=== PATIENT | female | born 1940 | race Caucasian/White ===

== ENCOUNTER 2023-03-21 16:15 | Outpatient (CLI) | payer MEDICARE, SELFPAY ==
--- NOTE | ~2023-03-21 | XR_ITS ---
XR chest 2V DATE: 03/21/2023 16:32 INDICATION: Cough for one week. History of asthma. TECHNIQUE: PA and lateral views COMPARISON: None FINDINGS: There is mild discoid atelectasis and possible mild infiltrate at the right lung base, righ t lower lobe. The lungs are hyperinflated but otherwise clear of infiltrate or consolidation. No pleural effusion or pulmonary vascular congestion or pneumothorax is detected. Diffuse osteopenia. There is dextroscoliosis of the thoracic spine. IMPRESSION: Mild discoid atelectasis and possible infiltrate at right lung base Reviewed, dictated and finalized at location L. SITTER
== END 2023-03-21 16:16 | disposition home or self-care (01) ==
LOC: ANHIMG 16:19
PROVIDERS: PCP Internal Medicine; Visit Provider Family Medicine
DX: R05.9 Cough, unspecified (principal); R91.8 Other nonspecific abnormal finding of lung field
CPT/HCPCS: 71046

== ENCOUNTER 2023-03-22 04:53 | Emergency (ER) | payer MEDICARE, SELFPAY ==
[2023-03-22] VITALS (12 sets, daily range): BP systolic 123–153; BP diastolic 62–101; PULSE 65–80; RESP 14–24; TEMP 36.4; O2SAT 84–100
--- NOTE | 2023-03-22 05:01 | ECG_ITS ---
Measurements Intervals [place] Rate: 72 P: 26 [place]: 110 QRS: 24 QRSD: 90 T: 58 QT: 348 QTc: 383 Interpretive Statements SINUS RHYTHM WITH SHORT [place] INTERVAL BORDERLINE ECG NO PREVIOUS ECG AVAILABLE FOR COMPARISON Electronically Signed On 03-22-2023 8:00:47 RETAIL EXPERIENCE SPECIALIST by Gal De La Fuente D.O.
--- NOTE | 2023-03-22 05:03 | PC.NURSE ---
Patient stated in triage that pain feels like indigestion and burning. Patient also stated that pain was in her chest going to her shoulders.
[2023-03-22 07:00] LABS: Basophils Absolute Auto 0.1 K/mm3 (0.0-0.1); Basophils Percent Auto 0.5 % (0.2-1.2); Eosinophils Absolute Auto 0.2 K/mm3 (0-0.3); Eosinophils Percent Auto 1.3 % (0-4.4); Hematocrit 39.5 % (37.0-47.0); Hemoglobin 13.4 g/dL (12.0-15.0); Immature Granulocyte Absolute 0.39 K/mm3 (0.00-0.031); Immature Granulocyte Percent A 3.3 % (0-0.5); Lymphocytes Percent Auto 17.6 % (18.3-44.2); Mean Corpuscular HGB Conc 33.9 g/dl (32-36); Mean Corpuscular Hemoglobin 29.9 pg (26-34); Mean Corpuscular Volume 88.2 fl (80-100); Mean Platelet Volume 9.7 fl (7.4-10.4); Monocytes Absolute Auto 0.7 K/mm3 (0.1-0.6); Monocytes Percent Auto 5.9 % (2.6-8.5); Neutrophils Absolute Auto 8.5 K/mm3 (1.3-6.7); Neutrophils Percent Auto 71.4 % (45.5-73.1); Platelet Count Result 370 k/mm3 (150-375); Red Blood Count 4.48 M/mm3 (4.2-5.4); Red Cell Distribution Width 13.9 % (11.5-14.5); White Blood Count 11.9 K/mm3 (4.5-10.0)
[2023-03-22 07:18] LABS: Carbon Dioxide 29 mmol/L (22-30); Chloride 105 mmol/L (98-107); Sodium 137 mmol/L (137-145)
[2023-03-22 07:19] LABS: Alanine Aminotransferase 20 U/L (6-35); Albumin Level 3.2 g/dL (3.5-5.1); Alkaline Phosphatase 70 U/L (38-126); Anion Gap 3 mmol/L (8-16); Aspartate Amino Transferase 17 U/L (14-36); Bilirubin,Total 0.4 mg/dL (0.2-1.3); Blood Urea Nitrogen 23 mg/dL (7-17); Calcium 9.5 mg/dL (8.4-10.2); Estimated Glomerular Filt Rate 53; Glucose 93 mg/dL (65-110); Lipase 120 U/L (23-300)
[2023-03-22 07:21] LABS: Appearance Urine Clear (Clear); Bacteria Urine None Seen /hpf; Bilirubin Urine Negative (Negative); Blood Urine Negative (Negative); Color Urine Yellow (Yellow); Glucose Urine UA Negative (Negative); Ketones Urine Negative (Negative); Leukocyte Esterase Ur Trace LEU/UL (Negative); Nitrate Urine Negative (Negative); Non Pathogenic Casts 0-2; Protein Urine Negative (Negative); RBC Urine 0-2 /hpf (0-2); Specific Grav Ur 1.006 (1.001-1.035); Squamous Epithelial Cell Urine Few /hpf (Few); Urobilinogen Urine 0.2 mg/dL (<2.0); WBC Urine 0-5 /hpf
[2023-03-22 07:32] LABS: Add Urine Microscopic? YES
[2023-03-22 08:46] LABS: Potassium 4.8 mmol/L (3.4-5.0)
--- NOTE | 2023-03-22 08:46 | ED.ABDPAIN ---
HPI - Abdominal Pain General Chief Complaint: Abdominal Pain Stated Complaint: Just woke up with abdominal pain, chest pain, Time Seen by Provider: 03/22/23 07:05 History of Present Illness HPI narrative: Patient is an 82-year-old female who presents ER with abdominal pain. Patient woke up at 2:30 a.m. in the morning with what she felt was heartburn. She reports she is having persistent belching discomfort. No diaphoresis/nausea/ vomiting/dyspnea. She had similar symptoms week and half ago. Symptoms resolved after taking Tums and Pepto-Bismol, but it lasted 2 hours. No exertional chest discomfort. No history of heart disease. Related Data Allergies Allergy/AdvReac Type Severity Reaction Status Date / Time morphine Allergy Unknown SLOW TO Verified 08/31/17 09:00 WAKE UP Review of Systems Review of Systems: All systems reviewed & are unremarkable except as noted in HPI and below Constitutional: Constitutional: Reports no additional constitutional complaints ENT: Reports system reviewed and no additional complaints, except as documented Cardiovascular: Cardiovascular: Reports no additional cardiovascular complaints Respiratory: Respiratory: Reports no additional respiratory complaints Gastrointestinal: Gastrointestinal: Reports abdominal pain, Reports heartburn, Denies diarrhea, Denies nausea and Denies vomiting Comments: +belching PMFSH Past Medical History Medical History (Updated 03/22/23 @ 11:24 by Dago Lloyd MD) Anxiety Asthma Depression Diverticulitis Hypertension Kidney stones Legally blind Surgical History Surgical History (Updated 03/22/23 @ 08:48 by Dago Lloyd MD) History of eye surgery History of hysterectomy Exam Narrative: GENERAL: Well-appearing, well-nourished, and in no acute distress. HEAD: Normocephalic, atraumatic. ENT: Mucous membranes moist. CHEST: Clear to auscultation. No respiratory distress. HEART: Regular rate and rhythm. Normal peripheral pulses. ABDOMEN: Soft, nontender, nondistended. EXTREMITIES: Normal range of motion. No edema. SKIN: Warm, dry, no rash. NEURO: Alert and oriented x3. PSYCH: Normal mood and affect. Course Course Emergency Course: Patient resting comfortably. Informed results. Troponin negative x2. EKG was sinus rhythm and no ST elevation or depression. Patient had no chest pain and excessive gas is felt appropriate for discharge home. Discussed return precautions. Additionally reviewed outpatient x-ray from yesterday and will start azithromycin for infiltrate. Vital Signs Vital signs: Vital Signs Temperature 97.5 F L 03/22/23 04:56 Pulse Rate 80 03/22/23 04:56 Respiratory Rate 20 03/22/23 04:56 Blood Pressure 153/88 H 03/22/23 04:56 Pulse Oximetry 100 03/22/23 04:56 Oxygen Delivery Room Air 03/22/23 04:56 Temperature 97.5 F L 03/22/23 04:56 Pulse Rate 65 03/22/23 10:30 Respiratory Rate 18 03/22/23 10:30 Blood Pressure 129/62 03/22/23 10:30 Pulse Oximetry 100 03/22/23 10:30 Oxygen Delivery Room Air 03/22/23 04:56 MDM - Abdominal Pain Lab Data 03/22/23 06:43 03/22/23 06:43 Labs: Lab Results 03/22/23 03/22/23 03/22/23 Range/Units 06:43 07:05 09:54 WBC 11.9 H (4.5-10.0) K/mm3 RBC 4.48 (4.2-5.4) M/mm3 Hgb 13.4 (12.0-15.0) g/dL Hct 39.5 (37.0-47.0) % MCV 88.2 (80-100) fl MCH 29.9 (26-34) pg MCHC 33.9 (32-36) g/dl RDW 13.9 (11.5-14.5) % Plt Count 370 (150-375) k/mm3 MPV 9.7 (7.4-10.4) fl Immature Gran % (Auto) 3.3 H (0-0.5) % Neut % (Auto) 71.4 (45.5-73.1) % Lymph % (Auto) 17.6 L (18.3-44.2) % [place] % (Auto) 5.9 (2.6-8.5) % Eos % (Auto) 1.3 (0-4.4) % Baso % (Auto) 0.5 (0.2-1.2) % Lymph # (Auto) 2.10 (0.9-3.2) K/mm3 [place] # (Auto) 0.7 H (0.1-0.6) K/mm3 Eos # (Auto) 0.2 (0-0.3) K/mm3 Baso # (Auto) 0.1 (0.0-0.1) K/mm3 Ab
[2023-03-22 09:00] LABS: Troponin I < 0.012 ng/mL (0.000-0.034)
--- NOTE | 2023-03-22 10:09 | ECG_ITS ---
Measurements Intervals [place] Rate: 66 P: 29 [place]: 103 QRS: 11 QRSD: 90 T: 48 QT: 355 QTc: 373 Interpretive Statements SINUS RHYTHM WITH SHORT [place] INTERVAL DELAYED PRECORDIAL R/S TRANSITION BORDERLINE ECG COMPARED TO ECG 03/22/2023 05:12:27 NO SIGNIFICANT CHANGES Electronically Signed On 03-22-2023 10:20:05 ARTIFICIAL FLOWERS SUPERVISOR by Gal De La Fuente D.O.
[2023-03-22 10:36] LABS: Troponin I < 0.012 ng/mL (0.000-0.034)
== END 2023-03-22 11:50 | disposition home or self-care (01) ==
PROVIDERS: Student in an Organized Health Care Education/Training Program; Emergency Provider Emergency Medicine
DX: R10.13 Epigastric pain (principal); K21.9 Gastro-esophageal reflux disease without esophagitis; I10 Essential (primary) hypertension; J45.909 Unspecified asthma, uncomplicated; F41.9 Anxiety disorder, unspecified; F32.A Depression, unspecified
CPT/HCPCS: 36415; 80053; 81001; 83690; 84484; 85025; 93005; 99284

== ENCOUNTER 2023-08-10 07:08 | Outpatient (CLI) | payer MEDICARE, SELFPAY ==
--- NOTE | ~2023-08-10 | US_ITS ---
US right upper quadrant INDICATION: Right upper quadrant pain PROCEDURE: Realtime right upper abdominal ultrasound. COMPARISON: No prior studies for comparison. FINDINGS: The pancreas is normal without focal mass or pancreatic ductal dilation. Liver echotexture is normal without focal mass or intrahepatic biliary dilatation. There is normal directional flow i n the portal vein. The gallbladder is normal without stones, gallbladder wall thickening or pericholecystic fluid. Comm on bile duct measures 4 mm. No sonographic Rico's sign. IMPRESSION: 1: Normal limited abdominal ultrasound. Reviewed, dictated and finalized at location A.
== END 2023-08-10 07:09 | disposition home or self-care (01) ==
LOC: ANHIMG 07:09
PROVIDERS: Visit Provider Family Medicine
DX: R10.11 Right upper quadrant pain (principal)
CPT/HCPCS: 76705

== ENCOUNTER 2023-09-22 10:28 | Inpatient (IN) | payer MEDICARE, SELFPAY ==
[2023-09-22] VITALS (8 sets, daily range): BP systolic 93–151; BP diastolic 63–118; PULSE 62–91; RESP 14–20; TEMP 36.6–36.8; O2SAT 97–100; BMI 22.1
--- NOTE | ~2023-09-22 | XR_ITS ---
EXAMINATION: XR abdomen/kub 1V DATE: 09/24/2023 09:48 INDICATION: Constipation. TECHNIQUE: A supine view of the abdomen on 2 radiographs was obtained. COMPARISON: CT abdomen and pelvis 09/22/2023 FINDINGS: There are no dilated loops of bowel. Stool distends the rectum. There is a small volume of stool in the descending and sigmoid colon. IMPRESSION: 1. Stool distends the rectum. Reviewed, dictated and finalized at location E.
--- NOTE | ~2023-09-22 | CT_ITS ---
EXAMINATION: CT abdomen pelvis w con DATE: 09/22/2023 11:37 INDICATION: Abdominal pain and bloating TECHNIQUE: Computed tomography (CT) of the abdomen and pelvis was performed with 100 mL Omnipaque-350 intravenous contrast. Automated exposure control and iterative reconstruction technique were employe d. The dose-length product was 234.49 mGy-cm. COMPARISON: None FINDINGS: Lung bases are clear. Heart size is normal. Atherosclerotic coronary artery calcific lesion. No peric ardial or pleural effusion. Moderate-sized sliding-type hiatal hernia. Liver, gallbladder, spleen, pa ncreas, bilateral adrenal glands and kidneys are normal. There is moderate colonic diverticulosis mos t prominent along the distal descending and proximal sigmoid colon. There is focal mild wall thickeni ng at the junction of the descending and sigmoid colon consistent with diverticulitis. Large ball of stool at the rectum measuring 6.8 cm maximal diameter with mild wall thickening and inflammatory stra nding in the surrounding fat consistent with stercoral colitis. There is fluid throughout the more pr oximal colon consistent with diarrhea. No bowel obstruction. The appendix is not visualized. No peric ecal inflammatory change to suggest acute appendicitis. Small fat-containing umbilical hernia. Bladde r is normal. The uterus is not identified and has likely been surgically resected. No abscess or free intraperitoneal gas or fluid. No pathologically enlarged abdominal or pelvic lymphadenopathy. Mild t o moderate thoracolumbar spondylosis. Central prosthetic 1.5 cm ill-defined sclerotic lesion at the L 2 vertebral body. IMPRESSION: 1. Moderate diverticulosis with stranding at the junction of the descending and sigmoid colon suspici ous for diverticulitis. 2. Diffuse mild wall thickening and some inflammatory stranding at the rectum which is distended arou nd a 6.8 cm ball of stool suggestive of fecal impaction with stercoral colitis. 3. Indeterminate 1.5 cm ill-defined sclerotic lesion at the L2 vertebral body which raises some yanci rn for metastatic disease. Consider bone scan for further evaluation. 4. Moderate-sized sliding-type hiatal hernia. Reviewed, dictated and finalized at location B. IMPRESSION: 1. Moderate diverticulosis with stranding at the junction of the descending and sigmoid colon suspicious for diverticulitis. 2. Diffuse mild wall thickening and some inflammatory stranding at the rectum w hich is distended around a 6.8 cm ball of stool suggestive of fecal impaction w ith stercoral colitis. 3. Indeterminate 1.5 cm ill-defined sclerotic lesion at the L2 vertebral body w hich raises some concern for metastatic disease. Consider bone scan for further evaluation. 4. Moderate-sized sliding-type hiatal hernia.
--- NOTE | 2023-09-22 10:38 | ED.GENADULT ---
HPI - General Adult General Chief complaint: Unspecified Stated complaint: issues with bowels Time Seen by Provider: 09/22/23 10:38 Source: patient Mode of arrival: ambulatory Limitations: no limitations History of Present Illness HPI narrative: Letitia is an 83-year-old female patient presenting to the clinic today with complaints of abdominal pain/ Bloating x2 days. She reports she has not had a bowel movement since Monday. Has been taking maxi trait without relief. Last dose was this morning. States she feels swollen in the rectum area and is unable to pass stool. Feels as though she needs to pass stool but can not due to the discomfort and/pain. History of obstruction/impaction two years ago. Denies any abdominal surgeries. Does have associated nausea. States she is passing gas Related Data Allergies Allergy/AdvReac Type Severity Reaction Status Date / Time morphine Allergy Unknown SLOW TO Verified 09/22/23 10:44 WAKE UP Review of Systems Review of Systems: Pertinent positives per HPI. Patient denies any fever, chills, rash, headache, visual changes, dizziness, cough, runny nose, sore throat, shortness of breath, chest pain, palpitations,vomiting, diarrhea, or any urinary issues. [facility] Past Medical History Medical History Anxiety Asthma Depression Diverticulitis Hypertension Kidney stones Legally blind Surgical History Surgical History History of eye surgery History of hysterectomy Comments At the time of my signature, I reviewed and agree with the nursing past medical, surgical, social, and family history. There is no relevant family history pertinent to the patient complaint. Exam Narrative: General: Well-developed, well nourished, in no apparent distress. Head: Normocephalic, atraumatic. Cardio: Regular rate and rhythm, s1 and s2 normal, no murmur appreciated. Resp: Clear to auscultation bilaterally, no rhonchi, rales, wheezing or rubs. Abdomen: Soft, pliable, bowel sounds present in all quadrants, generalized tender to palpation, no organomegly, no CVAT tenderness. Course Course Emergency Course: Portions of this record may have been created with voice recognition software. Vital Signs Vital signs: Vital Signs Temperature 36.7 C 09/22/23 10:37 Pulse Rate 91 09/22/23 10:37 Respiratory Rate 20 09/22/23 10:37 Blood Pressure 138/118 H 09/22/23 10:37 Pulse Oximetry 100 09/22/23 10:37 Oxygen Delivery Room Air 09/22/23 10:37 Temperature 36.7 C 09/22/23 10:37 Pulse Rate 84 09/22/23 11:43 Respiratory Rate 17 09/22/23 11:43 Blood Pressure 151/85 H 09/22/23 11:43 Pulse Oximetry 100 09/22/23 11:43 Oxygen Delivery Room Air 09/22/23 10:37 Vital signs reviewed Medical Decision Making MDM Narrative Medical decision making narrative: At the time of visit patient is resting comfortably on the exam table. Patient appears to be nontoxic. Labs: CBC shows a white blood cell count of 13.1, H&H of 14.841.2, platelet count is 3 her 42, patient does have a left-sided shift, chemistry shows sodium 137, potassium of 4.1, chloride 103, carbon dioxide 26, BUN of 19, creatinine 1.1, GFR is 47, glucose is 93, liver function test within normal limits, lipase is 243. Urinalysis Diagnostics: CT abdomen/pelvis. 1. Moderate diverticulosis with stranding at the junction of the descending and sigmoid colon suspicious for diverticulitis. 2. Diffuse mild wall thickening and some inflammatory stranding at the rectum which is distended around a 6.8 cm ball of stool suggestive of fecal impaction with stercoral colitis. 3. Indeterminate 1.5 cm ill-defined sclerotic lesion at the L2 vertebral body which raises some concern for metastatic disease. Consider bone scan for further evaluation. 4. Moderate-sized sliding-type hiatal hernia. Plan
[2023-09-22 11:03] LABS: Basophils Percent Auto 0.2 % (0.2-1.2); Eosinophils Absolute Auto 0.1 K/mm3 (0-0.3); Eosinophils Percent Auto 0.8 % (0-4.4); Hematocrit 41.2 % (37.0-47.0); Hemoglobin 14.8 g/dL (12.0-15.0); Immature Granulocyte Absolute 0.11 K/mm3 (0.00-0.031); Immature Granulocyte Percent A 0.8 % (0-0.5); Lymphocytes Absolute Auto 2.22 K/mm3 (0.9-3.2); Mean Corpuscular HGB Conc 35.9 g/dl (32-36); Mean Corpuscular Hemoglobin 29.8 pg (26-34); Mean Corpuscular Volume 83.1 fl (80-100); Mean Platelet Volume 9.8 fl (7.4-10.4); Monocytes Absolute Auto 0.7 K/mm3 (0.1-0.6); Monocytes Percent Auto 5.4 % (2.6-8.5); Neutrophils Absolute Auto 9.9 K/mm3 (1.3-6.7); Neutrophils Percent Auto 75.8 % (45.5-73.1); Platelet Count Result 342 k/mm3 (150-375); Red Blood Count 4.96 M/mm3 (4.2-5.4); Red Cell Distribution Width 14.8 % (11.5-14.5); White Blood Count 13.1 K/mm3 (4.5-10.0)
[2023-09-22 11:08] LABS: Alanine Aminotransferase 14 U/L (6-35); Albumin Level 4.1 g/dL (3.5-5.1); Alkaline Phosphatase 69 U/L (38-126); Anion Gap 8 mmol/L (4-12); Aspartate Amino Transferase 18 U/L (14-36); Bilirubin,Total 0.6 mg/dL (0.2-1.3); Blood Urea Nitrogen 19 mg/dL (7-17); Calcium 9.8 mg/dL (8.4-10.2); Carbon Dioxide 26 mmol/L (22-30); Chloride 103 mmol/L (98-107); Estimated CRCL calculation 25 ml/min; Estimated Glomerular Filt Rate 47; Glucose 93 mg/dL (65-110); Lipase 243 U/L (23-300); Potassium 4.1 mmol/L (3.4-5.0); Sodium 137 mmol/L (137-145)
[2023-09-22] MEDS: SODIUM CHLORIDE 0.9% IV 1,000 ML 999 ML IV CONT (11:42)
[2023-09-22] MEDS: ONDANSETRON INJ 4 MG/2 ML VIAL IV PUSH (11:42)
[2023-09-22 11:53] LABS: Appearance Urine Clear (Clear); Bilirubin Urine Negative (Negative); Blood Urine Negative (Negative); Color Urine Yellow (Yellow); Glucose Urine UA Negative (Negative); Ketones Urine Negative (Negative); Leukocyte Esterase Ur Negative LEU/UL (Negative); Nitrate Urine Negative (Negative); Protein Urine Negative (Negative); Urobilinogen Urine 0.2 mg/dL (<2.0)
[2023-09-22] MEDS: HYDROmorphone HCL INJ (*CRX) 1 MG/ML SYR 0.5 MG IV PUSH (11:56)
[2023-09-22 12:05] LABS: Add Urine Microscopic? NO
[2023-09-22] MEDS: PIPERACILLN/TAZ 3.375GM/NS50ML 3.375 GM/50 ML BAG IVPB (13:06)
[2023-09-22] MEDS: SODIUM CHLORIDE 0.9% IV 1,000 ML 125 ML IV CONT (13:40)
[2023-09-22 14:06] LABS: Lactic Acid Reflex 1.3 mmol/L (0.7-2.0)
--- NOTE | 2023-09-22 14:13 | PM.IMHP ---
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 The patient presents here from home for further evaluation of abdominal pain, nausea, and constipation. She reports last bowel movement on 09/20/2023 which was hard and small. Constipation now accompanied by abdominal pain and nausea. She describes the abdominal pain as lower, radiating into her buttocks, intermittent, no aggravating factors, and no alleviating factors. Pain so severe at home she had a difficult time ambulating. Reported symptoms were similar to her previous bowel obstruction which is why she sought care today. Prior to seeking treatment, the patient trialed half a bottle of magnesium citrate on 09/20 and Linzess 72 mcg on 09/19 without relief. Denying associated fever, chills, or body aches. Initial VS at presentation: 98.1? F, HR 91, RR 20, 138 of 118, and 100% on RA. ED workup showed: WBC 13.1, hemoglobin 14.8, creatinine 1.1 and GFR 47 (previously 1.0 and GFR 53 on 03/22/2023), lactic 1.3. UA unremarkable. CT of the abdomen/pelvis showed moderate diverticulosis with stranding suspicious for diverticulitis, diffuse mild wall thickening and inflammatory stranding at the rectum with 6.8 cm polyp stool suggestive of fecal impaction with stercoral colitis, indeterminate 1.5 cm sclerotic lesion at L2 vertebral body, and a moderate-sized sliding hiatal hernia. 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 Alcohol intake: never Substance use: never Do You Feel Safe in your Home?: Yes Lack of Transportation: No Lack of Food: Never True Current Housing: I Have Housing Concerned About Future Housing: No Difficulty Paying Gas/Electric Bills: No Difficulty Paying for Meds: No Currently Unemployed: No Education: High School Diploma/GED Difficulty w/ Childcare or Family Care: No Spiritual care concerns: No Meds Home Medications and Allergies Home Medications Medication Instructions Recorded Confirmed Type albuterol sulfate 90 mcg/actuation See Rx Instructions .Route .COMPLEX 09/22/23 09/22/23 History aerosol inhaler amlodipine 5 mg tablet 5 mg PO DAILY 09/22/23 09/22/23 History budesonide-formoterol HFA 160 See Rx Instructions .Route .COMPLEX 09/22/23 09/22/23 History mcg-4.5 mcg/actuation aerosol inhaler (Symbicort) ipratropium 0.5 mg-albuterol 3 mg See Rx Instructions .Route .COMPLEX 09/22/23 09/22/23 History (2.5 mg base)/3 mL nebulization soln levothyroxine 75 mcg tablet 75 mcg PO DAILY 09/22/23 09/22/23 History losartan 100 mg tablet 100 mg PO DAILY 09/22/23 09/22/23 History simethicone 125 mg capsule 125 mg PO QID PRN upset stomach 09/22/23 09/22/23 History tramadol 50 mg tablet 50 mg PO Q6H PRN pain 09/22/23 09/22/23 History Allergies Allergy/AdvReac Type Severity Reaction Status Date / Time morphine Aller
--- NOTE | 2023-09-22 14:45 | ADMGEN ---
This patient, Letitia Cherry, was admitted to 2 Medical Room 252-. Patient/family oriented to hospital policies and general routines including ID bracelet, bed and alarms, visiting hours, pain management, procedures, bathroom and other care routines, personal items, smoking policy, room service/diet, and visiting hours. Information on how to activate the Rapid Response Team has been discussed. Patient/Family are encouraged to report perceived risks to care and to ask questions if they do not understand what they are told or what they should do.
[2023-09-22] MEDS: PIPERACILLIN/TAZ 2.25G/NS 50ML 2.25 GM/50 ML BAG IVPB (18:28)
[2023-09-22] MEDS: ACETAMINOPHEN 325 MG TABLET 650 MG PO (19:48)
[2023-09-22] MEDS: FLUTICASONE/SALMETEROL 115-21 MCG INHALER 1 PUFF 2 PUFF INHALATION (21:00)
[2023-09-23] MEDS: PIPERACILLIN/TAZ 2.25G/NS 50ML 2.25 GM/50 ML BAG IVPB ×4 (00:13→17:28)
[2023-09-23] MEDS: SIMETHICONE 125 MG CHEW TAB PO (00:15)
[2023-09-23] MEDS: ACETAMINOPHEN 325 MG TABLET 650 MG PO (00:19)
[2023-09-23] MEDS: SODIUM CHLORIDE 0.9% IV 1,000 ML 125 ML IV CONT ×3 (00:19→23:00)
[2023-09-23 05:00] LABS: Basophils Percent Auto 0.3 % (0.2-1.2); Eosinophils Absolute Auto 0.2 K/mm3 (0-0.3); Eosinophils Percent Auto 2.3 % (0-4.4); Hematocrit 36.1 % (37.0-47.0); Hemoglobin 12.4 g/dL (12.0-15.0); Immature Granulocyte Absolute 0.06 K/mm3 (0.00-0.031); Immature Granulocyte Percent A 0.7 % (0-0.5); Lymphocytes Absolute Auto 2.42 K/mm3 (0.9-3.2); Lymphocytes Percent Auto 26.3 % (18.3-44.2); Mean Corpuscular HGB Conc 34.3 g/dl (32-36); Mean Corpuscular Hemoglobin 29.8 pg (26-34); Mean Corpuscular Volume 86.8 fl (80-100); Mean Platelet Volume 9.8 fl (7.4-10.4); Monocytes Absolute Auto 0.6 K/mm3 (0.1-0.6); Monocytes Percent Auto 6.2 % (2.6-8.5); Neutrophils Absolute Auto 5.9 K/mm3 (1.3-6.7); Neutrophils Percent Auto 64.2 % (45.5-73.1); Platelet Count Result 303 k/mm3 (150-375); Red Blood Count 4.16 M/mm3 (4.2-5.4); Red Cell Distribution Width 14.7 % (11.5-14.5); White Blood Count 9.2 K/mm3 (4.5-10.0)
[2023-09-23 05:26] LABS: Alanine Aminotransferase 11 U/L (6-35); Albumin Level 3.2 g/dL (3.5-5.1); Alkaline Phosphatase 54 U/L (38-126); Anion Gap 5 mmol/L (4-12); Aspartate Amino Transferase 15 U/L (14-36); Bilirubin,Total 0.6 mg/dL (0.2-1.3); Blood Urea Nitrogen 10 mg/dL (7-17); Calcium 8.8 mg/dL (8.4-10.2); Carbon Dioxide 24 mmol/L (22-30); Chloride 111 mmol/L (98-107); Estimated CRCL calculation 27 ml/min; Estimated Glomerular Filt Rate 53; Glucose 94 mg/dL (65-110); Potassium 3.8 mmol/L (3.4-5.0); Sodium 140 mmol/L (137-145)
[2023-09-23] MEDS: LEVOTHYROXINE SODIUM 75 MCG TABLET PO (05:58)
[2023-09-23] MEDS: HYDROmorphone HCL INJ (*CRX) 1 MG/ML SYR 0.5 MG IV PUSH (05:59)
[2023-09-23 06:00] VITALS: BP 121/61; PULSE 67; RESP 18; TEMP 36.8; O2SAT 97
[2023-09-23 07:45] VITALS: O2SAT 96
[2023-09-23] MEDS: FLUTICASONE/SALMETEROL 115-21 MCG INHALER 1 PUFF 2 PUFF INHALATION (07:45)
[2023-09-23] MEDS: amLODIPine BESYLATE 5 MG TABLET PO (08:40)
[2023-09-23] MEDS: LOSARTAN POTASSIUM 50 MG TABLET PO (08:40)
[2023-09-23] MEDS: polyethylene glycoL 3350 17 GM POWD.PACK PO (11:39)
[2023-09-23] MEDS: PANTOPRAZOLE SODIUM IV 40 MG VIAL IV PUSH (11:39)
[2023-09-23] MEDS: traMADol HCL (*CRX) 50 MG TABLET PO ×2 (11:39→21:01)
--- NOTE | 2023-09-23 11:58 | WPDPN ---
Progress Note: A&P Assessment and Plan (1) Sepsis: Code(s): A41.9 - Sepsis, unspecified organism Status: Acute (2) Colitis: Code(s): K52.9 - Noninfective gastroenteritis and colitis, unspecified Status: Acute (3) Diverticulitis: Code(s): K57.92 - Diverticulitis of intestine, part unspecified, without perforation or abscess without bleeding Status: Acute (4) Fecal impaction in rectum: Code(s): K56.41 - Fecal impaction Status: Acute (5) Bone lesion: Code(s): M89.9 - Disorder of bone, unspecified Status: Acute Plan Interval history 09/23/2023: patient continue c/o abdomen pain and nausea, still no BM but passing gas, will give protonix, zofran and Marlena lax, continue abx for colitis will monitor patient daughter is present. have PT/OT work with the patient. 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 The patient presents here from home for further evaluation of abdominal pain, nausea, and constipation. She reports last bowel movement on 09/20/2023 which was hard and small. Constipation now accompanied by abdominal pain and nausea. She describes the abdominal pain as lower, radiating into her buttocks, intermittent, no aggravating factors, and no alleviating factors. Pain so severe at home she had a difficult time ambulating. Reported symptoms were similar to her previous bowel obstruction which is why she sought care today. Prior to seeking treatment, the patient trialed half a bottle of magnesium citrate on 09/20 and Linzess 72 mcg on 09/19 without relief. Denying associated fever, chills, or body aches. Initial VS at presentation: 98.1? F, HR 91, RR 20, 138 of 118, and 100% on RA. ED workup showed: WBC 13.1, hemoglobin 14.8, creatinine 1.1 and GFR 47 (previously 1.0 and GFR 53 on 03/22/2023), lactic 1.3. UA unremarkable. CT of the abdomen/pelvis showed moderate diverticulosis with stranding suspicious for diverticulitis, diffuse mild wall thickening and inflammatory stranding at the rectum with 6.8 cm polyp stool suggestive of fecal impaction with stercoral colitis, indeterminate 1.5 cm sclerotic lesion at L2 vertebral body, and a moderate-sized sliding hiatal hernia. Interval history 09/23/2023: patient continue c/o abdomen pain and nausea, still no BM but passing gas, will give protonix, zofran and Marlena lax, continue abx for colitis will monitor patient daughter is present. have PT/OT work with the patient. Review of Systems Review of Systems: All systems reviewed & are unremarkable except as noted in HPI and below Exam Narrative: General: elderly and frail, NAD HEENT: eye are clear, nonicteric, HEART: RR S1 S2 LUNGS: CTA ABD: distended diffusely tender, BS faint. EXT: no edema NEURO: grossly intact and coopertive Objective Data Vital Signs Vital Signs: Vital Signs - 24 hr 09/22/23 12:30 09/22/23 13:15 09/22/23 14:08 Temperature 36.6 C Pulse Rate 65 62 70 Respiratory Rate 17 14 17 Blood Pressure 123/86 119/63 119/63 Pulse Oximetry 98 98 100 Oxygen Delivery 09/22/23 15:19 09/22/23 14:30 09/22/23 19:42 Temperature 36.8 C 36.7 C Pulse Rate 66 71 Respiratory Rate 16 18 Blood Pressure 123/69 93/67 L Pulse Oximetry 100 97 Oxygen Delivery Room Air 09/22/23 21:00 09/23/23 06:00 09/23/23 07:45 Temperature 36.8 C Pulse Rate 75 67 Respiratory Rate 17 18 Blood Pressure 121/61 Pulse Oximetry 97 96 Oxygen Delivery Room Air Intake/Output Intake/Output: Intake & Output 09/20/23 09/21/23 09/22/23 09/23/23 23:59 23:59 23:59 23:59 Intake Total 1340 2830 Output Total 450 Balance
[2023-09-23 14:00] VITALS: BP 116/68; PULSE 64; RESP 22; TEMP 35.9; O2SAT 98
[2023-09-23] MEDS: ONDANSETRON INJ 4 MG/2 ML VIAL IV PUSH (14:20)
[2023-09-23 22:00] VITALS: BP 123/68; PULSE 67; RESP 18; TEMP 36.8; O2SAT 99
[2023-09-24] MEDS: PIPERACILLIN/TAZ 2.25G/NS 50ML 2.25 GM/50 ML BAG IVPB ×4 (01:12→17:26)
[2023-09-24] MEDS: ACETAMINOPHEN 325 MG TABLET 650 MG PO (01:48)
[2023-09-24 05:20] LABS: Hematocrit 34.1 % (37.0-47.0); Hemoglobin 11.9 g/dL (12.0-15.0); Mean Corpuscular HGB Conc 34.9 g/dl (32-36); Mean Corpuscular Hemoglobin 29.8 pg (26-34); Mean Corpuscular Volume 85.3 fl (80-100); Mean Platelet Volume 9.8 fl (7.4-10.4); Platelet Count Result 296 k/mm3 (150-375); Red Cell Distribution Width 14.6 % (11.5-14.5); White Blood Count 9.6 K/mm3 (4.5-10.0)
[2023-09-24 05:40] LABS: Anion Gap 7 mmol/L (4-12); Blood Urea Nitrogen 5 mg/dL (7-17); Calcium 8.9 mg/dL (8.4-10.2); Carbon Dioxide 20 mmol/L (22-30); Chloride 110 mmol/L (98-107); Estimated CRCL calculation 30 ml/min; Estimated Glomerular Filt Rate 60; Glucose 86 mg/dL (65-110); Magnesium 2.1 mg/dL (1.6-2.3); Potassium 3.9 mmol/L (3.4-5.0); Sodium 137 mmol/L (137-145)
[2023-09-24 06:00] VITALS: BP 132/79; PULSE 71; RESP 18; TEMP 36.6; O2SAT 99
[2023-09-24] MEDS: LEVOTHYROXINE SODIUM 75 MCG TABLET PO (06:17)
[2023-09-24] MEDS: FLUTICASONE/SALMETEROL 115-21 MCG INHALER 1 PUFF 2 PUFF INHALATION ×2 (08:00→21:15)
[2023-09-24 08:01] VITALS: O2SAT 98
[2023-09-24] MEDS: LOSARTAN POTASSIUM 50 MG TABLET PO (09:35)
[2023-09-24] MEDS: polyethylene glycoL 3350 17 GM POWD.PACK PO ×2 (09:35→17:26)
[2023-09-24] MEDS: amLODIPine BESYLATE 5 MG TABLET PO (09:35)
[2023-09-24] MEDS: PANTOPRAZOLE SODIUM IV 40 MG VIAL IV PUSH (09:36)
[2023-09-24] MEDS: traMADol HCL (*CRX) 50 MG TABLET PO (09:36)
--- NOTE | 2023-09-24 11:34 | WPDPN ---
Progress Note: A&P Assessment and Plan (1) Sepsis: Code(s): A41.9 - Sepsis, unspecified organism Status: Acute (2) Colitis: Code(s): K52.9 - Noninfective gastroenteritis and colitis, unspecified Status: Acute (3) Diverticulitis: Code(s): K57.92 - Diverticulitis of intestine, part unspecified, without perforation or abscess without bleeding Status: Acute (4) Fecal impaction in rectum: Code(s): K56.41 - Fecal impaction Status: Acute (5) Bone lesion: Code(s): M89.9 - Disorder of bone, unspecified Status: Acute Plan Interval history 09/23/2023: patient continue c/o abdomen pain and nausea, still no BM but passing gas, will give protonix, zofran and Marlena lax, continue abx for colitis will monitor patient daughter is present. have PT/OT work with the patient. Interval history 09/24/2023: patient still continue to have abdominal pain, but no BM but some gas, KUB did not show any obstruction, will give enama, her son is present and agrees., will continue ABX, will monitor. 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 The patient presents here from home for further evaluation of abdominal pain, nausea, and constipation. She reports last bowel movement on 09/20/2023 which was hard and small. Constipation now accompanied by abdominal pain and nausea. She describes the abdominal pain as lower, radiating into her buttocks, intermittent, no aggravating factors, and no alleviating factors. Pain so severe at home she had a difficult time ambulating. Reported symptoms were similar to her previous bowel obstruction which is why she sought care today. Prior to seeking treatment, the patient trialed half a bottle of magnesium citrate on 09/20 and Linzess 72 mcg on 09/19 without relief. Denying associated fever, chills, or body aches. Initial VS at presentation: 98.1? F, HR 91, RR 20, 138 of 118, and 100% on RA. ED workup showed: WBC 13.1, hemoglobin 14.8, creatinine 1.1 and GFR 47 (previously 1.0 and GFR 53 on 03/22/2023), lactic 1.3. UA unremarkable. CT of the abdomen/pelvis showed moderate diverticulosis with stranding suspicious for diverticulitis, diffuse mild wall thickening and inflammatory stranding at the rectum with 6.8 cm polyp stool suggestive of fecal impaction with stercoral colitis, indeterminate 1.5 cm sclerotic lesion at L2 vertebral body, and a moderate-sized sliding hiatal hernia. Interval history 09/23/2023: patient continue c/o abdomen pain and nausea, still no BM but passing gas, will give protonix, zofran and Marlena lax, continue abx for colitis will monitor patient daughter is present. have PT/OT work with the patient. Interval history 09/24/2023: patient still continue to have abdominal pain, but no BM but some gas, KUB did not show any obstruction, will give enama, her son is present and agrees., will continue ABX, will monitor. Review of Systems Review of Systems: All systems reviewed & are unremarkable except as noted in HPI and below Exam Narrative: General: elderly and frail, NAD HEENT: eye are clear, nonicteric, HEART: RR S1 S2 LUNGS: CTA ABD: distended diffusely tender, BS faint. EXT: no edema NEURO: grossly intact and coopertive Objective Data Vital Signs Vital Signs: Vital Signs - 24 hr 09/23/23 14:00 09/23/23 22:00 09/23/23 19:46 Temperature 35.9 C L 36.8 C Pulse Rate 64 67 Respiratory Rate 22 H 18 Blood Pressure 116/68 123/68 Pulse Oximetry 98 99 Oxygen Delivery Room Air 09/24/23 06:00 09/24/23 08:01 09/24/23 09:40 Temperature 36.6 C Pulse Rate 71 Respiratory Rate 18 Blood Pressure 13
[2023-09-24 13:58] VITALS: BP 117/65; PULSE 65; RESP 18; TEMP 36.2; O2SAT 98
[2023-09-24] MEDS: SODIUM CHLORIDE 0.9% IV 1,000 ML 125 ML IV CONT (15:00)
[2023-09-24] MEDS: SENNA/DOCUSATE SODIUM TABLET 1 TAB PO (20:56)
[2023-09-24 21:07] VITALS: BP 132/72; PULSE 68; RESP 18; TEMP 36.1; O2SAT 98
[2023-09-24 21:16] VITALS: PULSE 77; RESP 16
[2023-09-25] MEDS: PIPERACILLIN/TAZ 2.25G/NS 50ML 2.25 GM/50 ML BAG IVPB ×2 (00:33→05:38)
[2023-09-25 05:05] LABS: Hematocrit 35.5 % (37.0-47.0); Hemoglobin 12.2 g/dL (12.0-15.0); Mean Corpuscular HGB Conc 34.4 g/dl (32-36); Mean Corpuscular Hemoglobin 29.7 pg (26-34); Mean Corpuscular Volume 86.4 fl (80-100); Mean Platelet Volume 9.4 fl (7.4-10.4); Platelet Count Result 306 k/mm3 (150-375); Red Blood Count 4.11 M/mm3 (4.2-5.4); Red Cell Distribution Width 14.9 % (11.5-14.5); White Blood Count 10.6 K/mm3 (4.5-10.0)
[2023-09-25 05:20] LABS: Anion Gap 6 mmol/L (4-12); Blood Urea Nitrogen 6 mg/dL (7-17); Calcium 9.2 mg/dL (8.4-10.2); Carbon Dioxide 24 mmol/L (22-30); Chloride 111 mmol/L (98-107); Estimated CRCL calculation 27 ml/min; Estimated Glomerular Filt Rate 53; Glucose 83 mg/dL (65-110); Magnesium 1.8 mg/dL (1.6-2.3); Potassium 4.5 mmol/L (3.4-5.0); Sodium 141 mmol/L (137-145)
[2023-09-25] MEDS: LEVOTHYROXINE SODIUM 75 MCG TABLET PO (05:38)
[2023-09-25 06:00] VITALS: BP 133/67; PULSE 72; RESP 18; TEMP 37; O2SAT 98
[2023-09-25] MEDS: FLUTICASONE/SALMETEROL 115-21 MCG INHALER 1 PUFF 2 PUFF INHALATION (08:55)
[2023-09-25 08:58] VITALS: PULSE 80; RESP 16; O2SAT 95
[2023-09-25] MEDS: PANTOPRAZOLE SODIUM IV 40 MG VIAL IV PUSH (09:34)
[2023-09-25] MEDS: LOSARTAN POTASSIUM 50 MG TABLET PO (09:35)
[2023-09-25] MEDS: polyethylene glycoL 3350 17 GM POWD.PACK PO (09:35)
[2023-09-25] MEDS: amLODIPine BESYLATE 5 MG TABLET PO (09:35)
--- NOTE | 2023-09-25 09:43 | PM.DS ---
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 The patient presents here from home for further evaluation of abdominal pain, nausea, and constipation. She reports last bowel movement on 09/20/2023 which was hard and small. Constipation now accompanied by abdominal pain and nausea. She describes the abdominal pain as lower, radiating into her buttocks, intermittent, no aggravating factors, and no alleviating factors. Pain so severe at home she had a difficult time ambulating. Reported symptoms were similar to her previous bowel obstruction which is why she sought care today. Prior to seeking treatment, the patient trialed half a bottle of magnesium citrate on 09/20 and Linzess 72 mcg on 09/19 without relief. Denying associated fever, chills, or body aches. Initial VS at presentation: 98.1? F, HR 91, RR 20, 138 of 118, and 100% on RA. ED workup showed: WBC 13.1, hemoglobin 14.8, creatinine 1.1 and GFR 47 (previously 1.0 and GFR 53 on 03/22/2023), lactic 1.3. UA unremarkable. CT of the abdomen/pelvis showed moderate diverticulosis with stranding suspicious for diverticulitis, diffuse mild wall thickening and inflammatory stranding at the rectum with 6.8 cm polyp stool suggestive of fecal impaction with stercoral colitis, indeterminate 1.5 cm sclerotic lesion at L2 vertebral body, and a moderate-sized sliding hiatal hernia. Interval history 09/23/2023: patient continue c/o abdomen pain and nausea, still no BM but passing gas, will give protonix, zofran and Marlena lax, continue abx for colitis will monitor patient daughter is present. have PT/OT work with the patient. [place] [address] [address] [place] [id number] Progress Note Signed Patient: Letitia Cherry MR#: [id number] : 1940 Acct:[id number] Age: 83 ADM Date: 09/22/23 Loc: [id number]: Mikael Sorinao M.D. cc: ~ Progress Note: A&P Assessment and Plan (1) Sepsis: Code(s): A41.9 - Sepsis, unspecified organism Status: Acute (2) Colitis: Code(s): K52.9 - Noninfective gastroenteritis and colitis, unspecified Status: Acute (3) Diverticulitis: Code(s): K57.92 - Diverticulitis of intestine, part unspecified, without perforation or abscess without bleeding Status: Acute (4) Fecal impaction in rectum: Code(s): K56.41 - Fecal impaction Status: Acute (5) Bone lesion: Code(s): M89.9 - Disorder of bone, unspecified Status: Acute Plan Interval history 09/23/2023: patient continue c/o abdomen pain and nausea, still no BM but passing gas, will give protonix, zofran and Marlena lax, continue abx for colitis will monitor patient daughter is present. have PT/OT work with the patient. Interval history 09/24/2023: patient still continue to have abdominal pain, but no BM but some gas, KUB did not show any obstruction, will give enama, her son is present and agrees., will continue ABX, will monitor. 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 The patient presents here from home for further evaluation of abdominal pain
== END 2023-09-25 12:55 | disposition home or self-care (01) | DRG 872 ==
LOC: ANHED 13:22 → ANH2MED 13:33
PROVIDERS: Student in an Organized Health Care Education/Training Program; Admitting Provider Family Medicine; Emergency Provider Nurse Practitioner Family; PCP Nurse Practitioner Family; Visit Provider Family Medicine
DX: A41.9 Sepsis, unspecified organism (principal); K57.92 Diverticulitis of intestine, part unspecified, without perforation or abscess without bleeding; K52.89 Other specified noninfective gastroenteritis and colitis; E03.9 Hypothyroidism, unspecified; F17.210 Nicotine dependence, cigarettes, uncomplicated; H54.7 Unspecified visual loss; I10 Essential (primary) hypertension; J45.909 Unspecified asthma, uncomplicated; K56.41 Fecal impaction; K44.9 Diaphragmatic hernia without obstruction or gangrene; K57.90 Diverticulosis of intestine, part unspecified, without perforation or abscess without bleeding; M19.90 Unspecified osteoarthritis, unspecified site; M89.9 Disorder of bone, unspecified
CPT/HCPCS: 36415; 74018; 74177; 80048; 80053; 81003; 83605; 83690; 83735; 85025; 85027; 87040; 87181; 94640; 96361; 96365; 96375; 97161; 97165; 99285; A9270; J1170; J2405; J2470; J2543; J7030; Q9967

== ENCOUNTER 2024-07-31 07:30 | Outpatient (CLI) | payer MEDICARE, SELFPAY ==
--- NOTE | ~2024-07-31 | MR_ITS ---
MRI of the lumbar spine Clinical History: Back pain Technique: Axial T2-weighted images, and sagittal T1-weighted, T2-weighted, and T2 fat-sat images wer e acquired. Findings: There is no fracture of the lumbar spine. There is minimal grade 1 retrolisthesis of L1 ove r L2. No significant bone marrow signal abnormality seen. At L1-L2, there is moderate degenerative disc narrowing. There is mild facet arthropathy. No central canal stenosis. There is mild bilateral neural foraminal narrowing. At L2-L3, there is no significant disc bulge or herniation. There is minimal facet hypertrophy. No sp inal canal stenosis or neural foraminal narrowing. At L3-L4, there is minimal disc bulge and moderate facet arthropathy. No central canal stenosis. Neur al foramina are preserved. At L4-L5, there is disc bulge with superimposed large left paracentral disc extrusion. Severe facet a rthropathy present. These factors all contribute to severe spinal canal stenosis/thecal sac compressi on. There is severe right neural foraminal comprise. There is mild left neural foraminal narrowing. At L5-S1, there is minimal disc bulge with advanced facet arthropathy. No central canal stenosis. The re is no definite neural foraminal narrowing. Paravertebral soft tissues are unremarkable. Impression: Large left paracentral disc extrusion L4-L5, which in conjunction with additional degenerative factor s, results in severe spinal canal stenosis/thecal sac compression and severe right neural foraminal n arrowing at this level. There is probable severe compression of the exiting nerve root at this level on the left side. Reviewed, dictated and finalized at location . Impression: Large left paracentral disc extrusion L4-L5, which in conjunction with addition al degenerative factors, results in severe spinal canal stenosis/thecal sac com pression and severe right neural foraminal narrowing at this level. There is pr obable severe compression of the exiting nerve root at this level on the left s guido.
--- NOTE | ~2024-07-31 | MR_ITS ---
MRI of the SI joints Clinical history low back pain TECHNIQUE: Sagittal proton density fat-sat images, coronal T1-weighted, T2-weighted, and T2 fat-sat i mages, and axial T1-weighted and T2 fat-sat images were performed. FINDINGS: Bilateral SI joints are intact. No degenerative or erosive change. No bone marrow edema. No evidence for sclerosis. No fusion of the SI joints. Paravertebral soft tissues are unremarkable. No soft tissue mass or fluid collection evident. IMPRESSION: SI joints are unremarkable. Reviewed, dictated and finalized at location M. IMPRESSION: SI joints are unremarkable.
== END 2024-07-31 07:31 | disposition home or self-care (01) ==
LOC: MICIMG 07:31
PROVIDERS: PCP Internal Medicine; Visit Provider Internal Medicine
DX: M51.26 Other intervertebral disc displacement, lumbar region (principal)
CPT/HCPCS: 72148; 72195

== ENCOUNTER 2025-01-01 07:31 | Observation (INO) | payer MEDICARE, MEDICAID, SELFPAY ==
--- NOTE | ~2025-01-01 | CT_ITS ---
CT abdomen pelvis w con Clinical History: constipation, rectal soreness . Comparison: CT abdomen and pelvis 09/22/2023 Technique: Axial images lung bases to symphysis pubis IV contrast information not listed in PACS Coronal, sagittal reformats CT images acquired with automatic exposure control for dose reduction DLP: 210 mGy-cm Findings: Lung bases: Clear. Visualized heart and pericardium: Unremarkable. Liver: Unremarkable. Gallbladder: Unremarkable. Spleen: Unremarkable. Pancreas: Unremarkable. Adrenal glands: Unremarkable. Kidneys: Mild bilateral pelviectasis. Right kidney- No hydronephrosis. No renal stones. Left kidney- No hydronephrosis. No renal stones. Distal esophagus/stomach: Moderate hiatal hernia. Small bowel loops: Normal caliber and wall thickness. Colon: Diverticula. Rectal stool. Perirectal stranding Normal caliber and wall thickness. Appendix not seen. Anal wall thickening. Air-fluid levels suggest impending diarrheal state Nodes: No enlarged nodes. Peritoneum: No ascites. No free air. Urinary bladder: Unremarkable. Uterus: Removed. Adnexa: No masses. Bones: No acute bony abnormality. Soft tissues: Small umbilical hernia with fat. Aorta: No aneurysm or dissection. Atherosclerotic disease. IVC: Unremarkable. Main portal vein/SMV/splenic vein: Patent. IMPRESSION: 1. Anal wall thickening. Recommend evaluation/anoscopy. 2. Worrisome for stercoral colitis. 3. Additional findings as above. Reviewed, dictated and finalized at location .
--- OUTSIDE RECORDS SUMMARY | 2025-01-01 07:35 | XMS_ITS | Data Portability ---
Author Organization [facility] [place], Main Office Address [address] [place] [address] Care Team Providers Care Leather Whitener Name Role Phone ISHMAEL ROSA Nursing Home Manager JOY BRIONES Orthopedic Surgeon LEIGH ANN PEREIRA Primary Care Provider [phone] TESHA MALIN Tie Up Worker Assessment Encounter Date Assessment Date Assessment LastModified by Organization Details LastModified Time 04/08/2024 04/08/2024 04/03/2024: TSH 14.3H, FT4 1.15 Not available 04/08/2024 10:20:34 07/08/2024 07/08/2024 04/03/2024: TSH 14.3H, FT4 1.15 Not available 07/07/2024 13:42:02 10/14/2024 10/14/2024 04/03/2024: TSH 14.3H, FT4 1.15 07/09/2024: TSH 0.39L GFR 56 Not available 10/14/2024 10:21:04 Plan of Treatment Reminders Order Date Submit Date Provider Last Modified By Organization Details Last Modified Time Details Appointments Follow Up 15 2024 09:30A Chriss hoskins MD Not available Not available Not available Lab vitamin D3, 25-hydr oxy, serum 10/14/2 025 [email or web address] [facility] (Lab), [address] [place], [address], 10/14/2024 16:17:25 CMP, serum or plasma [address] (Lab), [address] [place], [address], 10/14/2024 16:17:24 lipid panel, serum [address] (Lab), [address] [place], [address], 10/14/2024 16:17:24 CBC w/ auto diff [address] (Lab), [address] [place], [address], 10/14/2024 16:17:24 TSH, serum or plasma [address] (Lab), [address] [place], [address], 10/14/2024 16:17:24 vitamin B12 + folate, serum or blood [address] (Lab), [address] [place], [address], 10/14/2024 16:17:25 vitamin D3, 25-hydr oxy, serum 2024 025 [facility] (Lab), [address] [place], [address], 07/08/2024 10:45:17 CMP, serum or plasma [address] [facility] (Lab), [address] [place], [address], 07/09/2024 12:59:26 lipid panel, serum [address] [facility] (Lab), [address] [place], [address], 07/09/2024 12:59:25 CBC w/ auto diff [address] [facility] (Lab), [address] [place], [address], 07/09/2024 12:59:28 TSH, serum or plasma [address] [facility] (Lab), [address] [place], [address], 07/09/2024 12:59:31 vitamin B12 + folate, serum or blood [address] [facility] (Lab), [address] [place], [address], 07/09/2024 12:59:30 vitamin D3, 25-hydr oxy, serum [address] (Lab), [address] [place], [address], 11/26/2024 10:09:45 CMP, serum or plasma [address] (Lab), [address] [place], [address], 11/26/2024 10:09:44 lipid panel, serum [address] [place] [address] (Lab), [address] [place], [address], 11/26/2024 10:09:45 CBC w/ auto diff [address] [place] [address] (Lab), [address] [place], [address], 11/26/2024 10:09:45 TSH, serum or plasma [address] (Lab), [address] [place], [address], 11/26/2024 10:09:45 vitamin B12 + folate, serum or blood [address] (Lab), [address] [place], [address], 11/26/2024 10:09:45 vitamin D3, 25-hydr oxy, serum [address] [facility] (Lab), [address] [place], [address], 04/03/2024 18:16:01 CMP, serum or plasma [address] [facility] (Lab), [address] [place], [address], 04/03/2024 13:23:47 lipid panel, serum [address] [facility] (Lab), [address] [place], [address], 04/03/2024 13:23:52 CBC w/ auto diff [address] [facility] (Lab), [address] [place], [address], 04/03/2024 13:14:41 TSH, serum or plasma [address] [facility] (Lab), [address] [place], [address], 04/03/2024 15:12:25 vitamin B12 + folate, serum or blood [address] (Lab), [address] [place], [address], 04/11/2024 08:34:20 Referral ophthal mologis t referra l - Please call patient to schedul e an appoint ment. Thank you. 2024 025 [facility], [facility] [place], [address], 10/14/2024 11:51:48 pulmono logist referra l - Please call patient to schedul e an appoint ment. Thank you. 2024 025 [email or web address] Tesha Malin CONSUMER SERVICES ADVISOR, [address], [place], [address], 10/28/2024 17:53:34 orthope dic surgeon referra l - Please call patient to schedul e an appoint ment. Thank you. 2024 025 [email or web address] Joy Briones CONSUMER SERVICES ADVISOR, [address], [place], [address], 10/14/2024 11:24:17 pain managem ent referra l - Please call patient to schedul e an appoint ment. Thank you. 2024 025 [facility], [address], [place], [address], 08/20/2024 14:39:22 ophthal mologis t referra l - Please call patient to schedul e an appoint ment. Thank you. 2024 025 [facility], [facility] [place], [address], 10/10/2024 09:31:32 pulmono logist referra l - Please call patient to schedul e an appoint ment. Thank you. 2024 025 [email or web address] Tesha Malin CONSUMER SERVICES ADVISOR, [address], [place], [address], 07/23/2024 16:44:21 home health referra l - Please call patient to schedul e an appoint ment. Thank you. 2024 025 [facility], [address] [place], [address], 10/10/2024 09:31:[address] referra l - Please call the referra l dept at if unable to take the patient , thank you. Please call patient to alfredo e an appoint ment. Thank you. 2024 025 [facility], [address] [place], [address], 10/10/2024 09:31:33 orthope dic surgeon referra l - Please call patient to alfredo coffey appoint ment. Thank you. 2024 025 mary Briones CONSUMER SERVICES ADVISOR, [address], [place], [address], 10/10/2024 09:31:31 pain managem ent referra l - Please call patient to schedul e. 2024 025 mary Sepulveda MD, [address] [facility] [address], [place], [address], 12/04/2024 08:29:56 ophthal mologis t referra l - Please call patient to schedul e. 2024 025 [email or web address] Rosa Whyte MD, [address] [facility], [facility], [place], [address], 04/08/2024 11:38:05 pulmono logist referra l - Please call patient to schedul e. 2024 025 [email or web address] Tesha Malin CONSUMER SERVICES ADVISOR, [address] [facility], [facility] [address], [place], [address], 04/08/2024 11:38:04 home health referra l - Please call patient to schedul e. 2024 025 [email or web address] [facility], [address] [place], [address], 04/08/2024 11:41:[address] st referra l - Please call the referra l dept at if unable to take the patient , thank you. 2024 025 llalor [facility], [address] [place], [address], 05/08/2024 17:28:42 orthope dic surgeon referra l - Please call patient to schedul e. 2024 025 [email or web address] Joy Briones CONSUMER SERVICES ADVISOR, [address], [place], [address], 04/08/2024 11:38:05 ophthal mologis t referra l - Please call patient to schedul e. 2023 024 [email or web address] Rosa Whyte MD, [address] [facility], [facility] [address], [address], 03/18/2024 16:32:13 pulmono logist referra l - Please call patient to schedul e. 2023 024 [email or web address] Tesha Malin CONSUMER SERVICES ADVISOR, [address] [facility] [address], [place], [address], 01/19/2024 15:03:43 home health referra l - Please call patient to schedul e. 2023 024 [email or web address] [facility], [address] [place], [address], 03/18/2024 16:32:[address] phys[address]i st referra l - Please call patient to schedul e. 2023 024 [facility], [address], [place], [address], 04/08/2024 11:42:04 orthope dic surgeon georgiana tinoco - Please call patient to schedul e. 2023 024 en Dimas Domingo CONSUMER SERVICES ADVISOR, [address] [facility] [address], [place], [address], 07/08/2024 08:48:21 Procedures None recorde d. Surgeries None recorde d. Imaging DEXA, axial skeleto n - Please call patient to schedul e. [address], [facility] [address] [place] [address], [address], 10/14/2024 14:35:30 DEXA, axial skeleto n - Please call patient to schedul e. [address], [address] [place] [address] [place] [address], [address], 08/07/2024 14:41:44 DEXA, axial skeleto n - Please call patient to schedul e. [address], [facility] [address] [place] [address], [address], 04/08/2024 11:47:33 DEXA, axial skeleto n - Please call patient to schedul e. [address], [facility] [address] [place] [address], [address], 08/20/2024 10:57:08 Medication Orders Linzess 72 mcg capsule 2024 025 tapan [email or web address] [facility] #[id number], [address] [facility], [place], [id number], 10/14/2024 10:38:53 Linzess 72 mcg capsule 2024 025 [facility] #[id number], [address], [place], [place], [id number], 07/08/2024 10:30:[address] mcg-4.5 mcg/act uation HFA aerosol inhaler 2024 025 [facility][id number], [address], [place], [place], [id number], 07/08/2024 10:30:42 Unithro id 100 mcg tablet 2024 025 [facility] #53192, [address], [place], [place], [id number], 07/08/2024 10:32:11 Unithro id 100 mcg tablet 2024 025 [facility] #[id number], [address], [place], [place], [id number], 04/08/2024 10:40:35 Patient TargetsNo targets recorded. Patient Instructions Encounter Date Encounter Id Patient Instructions Last Modified By Organization Details Last Modified Time 01/08/2024 [id number] dementia rating scale-2* [email or web address] 2 Not available 01/08/2024 11:11:28 alcohol misuse* [email or web address] 2 Not available 01/08/2024 11:11:28 depression screening* [email or web address] 2 Not available 01/08/2024 11:11:29 Timed Up and Go test (TUG)* [email or web address] 2 Not available 01/08/2024 11:11:29 multi-dimensiona l health assessment questionnaire* [email or web address] 2 Not available 01/08/2024 11:11:27 advance directiv es: care instructions [email or web address] 2 Not available 01/08/2024 11:11:28 advance care planning: care instructions [email or web address] 2 Not available 01/08/2024 11:11:28 [place] Advance Directives [email or web address] 2 Not available 01/08/2024 11:11:28 Personalized [facility] Plan and Screening Recommendations Advance Directives - Do you have one? No You have indicated that you are capable of preparing your advance care directive Advance Directives - Do we have your advance directive on file in your health record? Primary Prevention/Interven tion (prevents or decreases the chance of common diseases from occurring) Smoking Risk: Non Smoker Alcohol Misuse Screening: Negative Weight: Appropriate monitor weight weekly and call if continue to lose weight Physical activity: Need more exercise/physical activity advised patiet she can do chair aerobics 3 X a week, and daily stretching exercises. Nutrition: Average Refer to attached handout Heart-Healthy Diet: After Your Visit Fall Risk (screened today): High Recommend regular use of cane or walker, due to poor vision patient is very unsteady while ambulating. Vaccines Pneumococcal: Recommended today, but you have declined Influenza: Recommended today, but you have declined Chronic Disease Risks Stroke: Intermediate Risk Follow Heart Healthy Diet. Heart Attack: Intermediate Risk Follow Heart Healthy Diet. Clogging of the Arteries: Intermediate Risk Follow Heart Healthy/ DASH Diet. Diabetes: Low Risk I have no recommendations Secondary Prevention/Interven tion (detects treatable diseases before they may cause symptoms, disability, or ) Breast Cancer Screening with mammogram: No screening necessary Cervical/Uterine/Ov alejo Cancer Screening: No screening necessary Osteoporosis Screening: No screening necessary Patient declines. Colon Cancer Screening: No screening necessary Patient declines. Eye Disease Screening: Recommended today Dementia Risk: Intermediate I have no recommendations Depression Screening: Negative Not available 01/08/2024 10:53:54 Reason for Referral Tie Up Worker Referral for C hronic obstructive pulmonary disease Please call patient to schedule. Referring Physician: Leigh Ann Pereira Internal Medicine, Encounter Date: 01/08/2024 Orthopedic Surgeon Referral for Pain of bilateral knee joints Please call patient to schedule. Referring Physician: Leigh Ann Pereira Internal Medicine, Encounter Date: 01/08/2024 Nursing Home Manager Referral for Visual impairment Please call patient to schedule. Referring Physician: Franchesca Hazel Medicine, Encounter Date: 01/08/2024 Home Health Referral for Uns teady when walking Please call patient to schedule. Referring Physician: Leigh Ann Pereira Internal Medicine, Encounter Date: 01/08/2024 Physical Therapist Referral for Unsteady when walking Please call patient to schedule. Referring Physician: Leigh Ann Pereira Internal Medicine, Encounter Date: 01/08/2024 Tie Up Worker Referral for C hronic obstructive pulmonary disease Please call patient to schedule. Referring Physician: Leigh Ann Pereira Internal Medicine, Encounter Date: 04/08/2024 Orthopedic Surgeon Referral for Pain of bilateral knee joints Please call patient to schedule. Referring Physician: Leigh Ann Pereira Internal Medicine, Encounter Date: 04/08/2024 Nursing Home Manager Referral for Visual impairment Please call patient to schedule. Referring Physician: Leigh Ann Pereira Internal Medicine, Encounter Date: 04/08/2024 Home Health Referral for Uns teady when walking Please call patient to schedule. Referring Physician: Franchesca Hazel Medicine, Encounter Date: 04/08/2024 Physical Therapist Referral for Unsteady when walking Please call the referral dept at [phone] if unable to take the patient, thank you. Referring Physician: Leigh Ann Pereira Internal Medicine, Encounter Date: 04/08/2024 Pain Management Referral for Chronic low back pain Please call patient to schedule. Referring Physician: Leigh Ann Pereira Internal Medicine, Encounter Date: 04/08/2024 Tie Up Worker Referral for C hronic obstructive pulmonary disease Please call patient to schedule an appointment. Thank you. Referring Physician: Leigh Ann Pereira Internal Medicine, Encounter Date: 07/08/2024 Orthopedic Surgeon Referral for Pain of bilateral knee joints Please call patient to schedule an appointment. Thank you. Referring Physician: Franchesca Hazel Medicine, Encounter Date: 07/08/2024 Nursing Home Manager Referral for Visual impairment Please call patient to schedule an appointment. Thank you. Referring Physician: Leigh Ann Pereira Internal Medicine, Encounter Date: 07/08/2024 Home Health Referral for Uns teady when walking Please call patient to schedule an appointment. Thank you. Referring Physician: Leigh Ann Pereira Internal Medicine, Encounter Date: 07/08/2024 Physical Therapist Referral for Unsteady when walking Please call the referral dept at [phone] if unable to take the patient, thank you. Please call patient to schedule an appointment. Thank you. Referring Physician: Leigh Ann Pereira Internal Medicine, Encounter Date: 07/08/2024 Pain Management Referral for Chronic low back pain Please call patient to schedule an appointment. Thank you. Referring Physician: Leigh Ann Pereira Internal Medicine, Encounter Date: 07/08/2024 Tie Up Worker Referral for C hronic obstructive pulmonary disease Please call patient to schedule an appointment. Thank you. Referring Physician: Leigh Ann Pereira Internal Medicine, Encounter Date: 10/14/2024 Orthopedic Surgeon Referral for Pain of bilateral knee joints Please call patient to schedule an appointment. Thank you. Referring Physician: Leigh Ann Pereira Internal Medicine, Encounter Date: 10/14/2024 Nursing Home Manager Referral for Visual impairment Please call patient to schedule an appointment. Thank you. Referring Physician: Leigh Ann Pereira Internal Medicine, Encounter Date: 10/14/2024 Results Created Date Observation Date Name Description Value Unit Range Abnormal Flag Note LastModifiedBy Organization Detail LastModifiedTime 08/01/1907/31/2024 MRI, lumba r spine , w/o contr ast No observ ation record ed. [facility] [address], [place], [address], 07/31/2024 10:32:27 08/01/19 25 07/31/2024 MRI, sacro iliac joint (s), w/o contr ast No observ ation record ed. [facility] [address] [facility] [address], [place], [address], 07/31/2024 12:02:48 Result Notes None recorded. Problems Name Problem SNOMED Code Status Onset Date Resolution Date Notes Provider Name and Address Organization Details Recorded Time Celluliti s 296493213 Completed 201610/04/2017 Not Available [facility] 3 19:12:51 Impacted cerumen 54759035 Completed 201604/10/2017 Not Available [facility] 3 19:12:51 Asthma 201775485 Active 2016 Molly Ring LPN null, [place] [facility] 3 16:24:05 Constipat ion 56423659 Completed 201710/04/2017 VALORIE Faustin [address] [facility], [facility] [address], [place], [address] , [place] [facility] 4 10:18:12 Hypothyro idism 14400069 Active 2017 Molly Ring LPN null, [place] [facility] 3 16:24:05 Essential hypertens ion 77410958 Active 2017 Molly Ring LPN null, [place] [facility] 3 16:24:05 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 Molly Ring LPN null, [place] [facility] 3 16:24:05 Hypercalc emia 34271966 Active 2018 Molly Ring LPN null, [place] [facility] 3 16:24:05 Edema 463512317 Active 2019 Molly Ring LPN null, [place] [facility] 3 16:24:05 Ex-smoker 0564646 Active 2019 Molly Ring LPN null, [place] [facility] 3 16:24:05 Cobalamin deficienc y 923793613 Active 2021 Molly Ring [facility] null, [place] [facility] 3 16:24:05 Pain of bilateral knee joints 36511558079 4104 Active 2022 Molly Ring [facility] null, [place] [facility] 3 16:24:05 Confusion al state 920864844 Active 2022 Molly Ring [facility] null, [place] [facility] 3 16:24:05 Blood in urine 26037152 Active 2022 Molly Ring [facility] null, [place] [facility] 3 16:24:05 Cough 94180006 Active 2022 Molly Ring [facility] null, [place] [facility] 3 16:24:05 Pneumonia 253878879 Active 2023 Rosa Pang MD [address], [place], [address] , [facility] 4 10:32:22 Epigastri c pain 98518339 Active 2023 Rosa Pang MD [address], [place], [address] , [facility] 4 09:59:05 Vitamin D deficienc y 40606191 Active 2023 Rosa Pang MD [address], [place], [address] , [facility] 4 10:02:24 Constipat ion 54515719 Active 2023 VALORIE Faustin [address], [place], [address] , [facility] 4 10:18:12 Wheezing 79533237 Active 2023 VALORIE Camacho [address], [place], [address] , [facility] 4 10:33:50 Chronic pain 59078782 Active 2023 Leigh Ann abad MD [address], [place], [address] , [facility] 4 10:08:48 Chronic obstructi ve pulmonary disease 05432834 Active 2023 Leigh Ann abad MD [address], [place], [address] , [facility] 4 10:09:47 Chronic constipat ion 325112196 Active 2023 Leigh Ann abad MD [address], [place], [address] , [facility] 4 10:11:08 Serum vitamin B12 below reference range 726431649 Active 2023 Leigh Ann abad MD [address], [place], [address] , [facility] 4 11:07:22 Visual impairmen t 765961214 Active 2023 Leigh Ann abad MD [address], [place], [address] , [facility] 4 11:09:14 Unsteady when walking 06827170 Active 2023 Leigh Ann abad MD [address], [place], [address] , [facility] 4 11:09:41 Acute urinary tract infection 357751426 Active 2024 HELEN Ramos, [facility] 5 10:22:53 Chronic low back pain 034655523 Active 2024 HELEN Ramos, [facility] 5 11:18:28 Chronic kidney disease 837312464 Active 2024 Leigh Ann abad MD [address], [place], [address] , [facility] 10:41:51 Notes:Some problems listed i n Document: #[id number] could not be added to this patient's chart. Please review this document and add these problems to the patient's chart manually as needed. Problem Notes None recorded. Procedures Surgical History Date Name Laterality Status Provider Name and Address Organization Details Recorded Time 01/08/20 Medicare Wellness CPT Code, subsequent completed Gustavo Lisa LPN [facility] 01/08/2024 08:30:39 01/08/20 Advanced Care Planning completed Gustavo Lisa LPN [facility] 01/08/2024 10:36:06 09/12/19 Cortisone Injection (Dequervains/ Greater Trochantric/ Lateral Epicondylitis/ Shoulder/ Subacromial Space/ Knee or Trigger Finger) completed VALORIE Faustin [address], [place], [address], [facility] 12/12/2023 17:13:48 06/06/19 Medicare Wellness CPT Code, subsequent completed Selam Valladares RN [facility] 06/06/2023 09:50:13 02/14/20 23 Cortisone Injection (Dequervains/ Greater Trochantric/ Lateral Epicondylitis/ Shoulder/ Subacromial Space/ Knee or Trigger Finger) completed Rosa Pang MD [address], [place], [address], [facility] 02/13/2023 10:46:28 11/10/19 23 Corticosteroid Injection Knee completed Rosa Pang MD [address], [place], [address], [facility] 11/09/2022 14:54:15 hysterectomy completed Not Available [facility] 05/18/2022 19:12:17 Eye Surgery completed Not Available [facility] 05/18/2022 19:12:17 Imaging Results None recorded. Procedure Notes None recorded. Medical Equipment None Reported. Allergies Allergen ID Allergen Name Allergen Category Reaction Reaction Severity Criticality Documentation Date Start Date Code Code System Note Provider Name and Address Organization Details Recorded Time 86717 morphine medicatio n itching Not available Not available 05/18/2022 7052 RxNorm Not Available [facility] 3 19:13:53 70182 honey preparati on food,medi cation itching Not available Not available 05/18/2022 91969 9 RxNorm Not Available [facility] 3 19:13:53 57594 gabapenti n medicatio n Not available Not available Not available 05/18/2022 65546 RxNorm Had delir ium/d elusi ons Not Available [facility] 3 19:13:53 Medications Name Sig Start Date Stop Date Status Note LastModified by Organization Details LastModified Time Prescriptio n - Renewal active Not Available Not Available Not Available lidocaine HCl 10 mg/mL (1 %) injection solution 2 ml injected bilateral knees 01/07 completed Not Available Not Available Not Available doxycycline hyclate 100 mg capsule Take 1 capsule twice a day by oral route for 7 days. 03/08 completed Not Available Not Available Not Available ipratropium 0.5 mg-albutero l 3 mg (2.5 mg base)/3 mL nebulizatio n soln USE 3 ML VIA NEBULIZER FOUR TIMES DAILY NEEDED active Not Available Not Available No t Available azithromyci n 250 mg tablet TAKE 2 TABLETS BY MOUTH FOR 1 DAY THEN TAKE 1 TABLET BY MOUTH DAILY FOR 4 DAYS 07/08 completed Not Available Not Available Not Available prednisone 20 mg tablet 3 po qday x 3 days then 2 po qday x 3 days then 1 po qday x 3 days then 1/2 po qday x 3 days then stop 06/05 completed Not Available Not Available Not Available Generlac 10 gram/15 mL oral solution TK 15 ML PO QD 12/08 completed Not Available Not Available Not Available cyanocobala min (vit B-12) 1,000 mcg tablet 1 po qday. Start first dose on 05/02/22. active Not Available Not Available No t Available metronidazo le 500 mg tablet TAKE 1 TABLET BY MOUTH EVERY 8 HOURS 11/13 completed Not Available Not Available Not Available levofloxaci n 250 mg tablet 10/04 completed Not Available Not Available Not Available amlodipine 5 mg tablet TAKE 1 TABLET BY MOUTH ONCE DAILY 2024 active Not Available Not Available Not Avai lable ciprofloxac in 500 mg tablet Take 1 tablet twice a day by oral route with meal(s) for 7 days. 12/05 completed Not Available Not Available Not Available peg-electro lyte solution 420 gram oral solution 10/04 completed Not Available Not Available Not Available tramadol 50 mg tablet TAKE 1 TABLET BY MOUTH THREE TIMES DAILY NEEDED active Not Available Not Available No t Available pantoprazol e 20 mg tablet,tate yed release TAKE 1 TABLET BY MOUTH AT BEDTIME FOR 4 WEEKS 06/05 completed Not Available Not Available Not Available levothyroxi ne 75 mcg tablet TAKE 1 TABLET BY MOUTH EVERY DAY 04/08 completed Not Available Not Available Not Available levothyroxi ne 88 mcg tablet TK 1 T PO D active Not Available Not Available No t Available prednisolon e acetate 1 % eye drops,suspe nsion SHAKE LQ AND INT 1 GTT IN OD QID 12/08 completed Not Available Not Available Not Available amlodipine 10 mg tablet TAKE 1 TABLET BY MOUTH EVERY DAY 10/04 completed Not Available Not Available Not Available triamcinolo ne acetonide 40 mg/mL suspension for injection 2 ml in bilateral knees 01/07 completed Not Available Not Available Not Available cephalexin 500 mg capsule Take 1 capsule 4 times a day by oral route for 7 days. 04/10 completed Not Available Not Available Not Available cyanocobala min (vit B-12) 1,000 mcg/mL injection solution Inject 1 mL every month by subcutane ous route. 03/30 completed Not Available Not Available Not Available levothyroxi ne 125 mcg tablet TAKE 1 TABLET BY MOUTH EVERY DAY DIRECTED 02/16 completed Not Available Not Available Not Available Unithroid 100 mcg tablet TAKE 1 TABLET BY MOUTH EVERY DAY active Not Available Not Available No t Available gabapentin 300 mg capsule TK 1 C PO TID 01/11 completed Not Available Not Available Not Available hydrochloro thiazide 25 mg tablet Take 1 tablet every day by oral route. 11/06 completed Not Available Not Available Not Available diclofenac sodium 50 mg tablet,tate yed release active Not Available Not Available Not Available polyethylen e glycol 3350 17 gram/dose oral powder DISSOLVE 17 GRAMS IN LIQUID AND TAKE BY MOUTH TWICE DAILY NEEDED active Not Available Not Available No t Available levofloxaci n 500 mg tablet Take 1 tablet every 24 hours by oral route for 5 days. 06/05 completed Not Available Not Available Not Available methylpredn isolone 4 mg tablets in a dose pack FOLLOW PACKAGE DIRECTION S 07/08 completed Not Available Not Available Not Available albuterol sulfate HFA 90 mcg/actuati on aerosol inhaler USE 2 INHALATIO NS BY MOUTH EVERY 4 HOURS NEEDED 2024 active Not Available Not Available Not Avai lable losartan 100 mg tablet TAKE 1 TABLET BY MOUTH DAILY 2024 active Not Available Not Available Not Avai lable metoclopram guido 10 mg tablet TK 1 T PO QD PRN 12/08 completed Not Available Not Available Not Available nitrofurant oin monohydrate /macrocryst als 100 mg capsule TAKE 1 CAPSULE BY MOUTH EVERY 12 HOURS FOR 7 DAYS 02/13 completed Not Available Not Available Not Available Vitamin D3 2000u daily 2019 active Not Available Not Available Not Avai lable IPLEX (PF) 2 tablets daily 12/28 completed Not Available Not Available Not Available Symbicort 160 mcg-4.5 mcg/actuati on HFA aerosol inhaler USE 2 INHALATIO NS BY MOUTH TWICE DAILY 2024 active Not Available Not Available Not Avai lable Linzess 145 mcg capsule 12/12 completed Not Available Not Available Not Available Linzess 72 mcg capsule Take 1 capsule every day by oral route as needed. 2024 active Not Available Not Available Not Avai lable Vitals Date Recorded Body height Body mass index (BMI) Body weight Body temperature Heart rate Systolic And Diastolic Provider Name and Address Organization Details Last Updated DateTime 5 154.94 cm 23.1 kg/m2 52919.2 7 g 97.8 [degF] 78 /min 124/80 mm[Hg] Sugey Pisgah, RMA [facility] [place] [facility] 5 10:14:10 Date Recorded Body height Body mass index (BMI) Body weight Body temperature Heart rate Systolic And Diastolic Provider Name and Address Organization Details Last Updated DateTime 5 154.94 cm 23.1 kg/m2 18799.2 7 g 97.1 [degF] 78 /min 124/72 mm[Hg] HELEN Ramos [facility] [place] [facility] 5 10:07:45 Date Recorded Body height Body mass index (BMI) Body weight Body temperature Heart rate Oxygen saturation Oxygen saturation in Arterial blood by Pulse oximetry Pain severity - 0-10 verbal numeric rating [Score] - Reported Systolic And Diastolic Provider Name and Address Organization Details Last Updated DateTime 5 154.94 cm 22.7 kg/m2 30063.0 8 g 97 [degF] 98 /min 72 % 72 % 6 142/82 mm[Hg] Tabby Trinh MA [facility] [place] [facility] 5 10:04:49 Date Recorded Body height Body mass index (BMI) Body weight Body temperature Heart rate Respiratory rate Oxygen saturation Oxygen saturation in Arterial blood by Pulse oximetry Pain severity - 0-10 verbal numeric rating [Score] - Reported Systolic And Diastolic Provider Name and Address Organization Details Last Updated DateTime 4 154.94 cm 23.6 kg/m2 44079.0 5 g 97.5 [degF] 78 /min 18 /min 98 % 98 % 2 124/72 mm[Hg] Gustavo Lisa LPN [facility] [place] [facility] 4 10:01:36 Social History Question Answer Notes LastModified by Organization Details LastModified Time Tobacco Smoking Status Former Smoker Not Available [email or web address] 05/18/2022 19:12:08 Do You Have An Advance Directive? No MIGRATION.[id number] Information not available 05/18/2022 Are You Blind Or Do You Have Difficulty Seeing? Yes Legally Blind In Left Eye Blurry Vision In Right Eye [email or web address] Information not available 01/08/2024 Is Blood Transfusion Acceptable In An Emergency? Yes Information not available 01/08/2024 What Is Your Level Of Caffeine Consumption? Moderate MIGRATION.030 [id number] Information not available 05/18/2022 How Much Tobacco Do You Chew? None MIGRATION.030 [id number] Information not available 05/18/2022 In The 14 Days Before Symptom Onset, Have You Had Close Contact With A Laboratory-conf irmed COVID-19 While That Case Was Ill? No Information not available 01/08/2024 In The 14 Days Before Symptom Onset, Have You Had Close Contact With A Person Who Is Under Investigation For COVID-19 While That Person Was Ill? No [email or web address] Information not available 01/08/2024 Are You Deaf Or Do You Have Serious Difficulty Hearing? No MIGRATION.030 075495 Information not available 05/18/2022 What Type Of Diet Are You Following? REGULAR MIGRATION.030 [id number] Information not available 05/18/2022 What Is The Highest Grade Or Level Of School You Have Completed Or The Highest Degree You Have Received? NI51232-1 [email or web address] Information not available 01/08/2024 How Many Days Of Moderate To Strenuous Exercise, Like A Brisk Walk, Did You Do In The Last 7 Days? 0 [email or web address] Information not available 01/08/2024 Have There Been Any Changes To Your Family Or Social Situation? No Information not available 01/08/2024 What Is The Fluoride Status Of Your Home? Unknown [email or web address] Information not available 01/08/2024 When Did You Quit Smoking? 16+yearssincelast cigarette [email or web address] Information not available 01/08/2024 Are There Any Guns Present In Your Home? No MIGRATION.030 [id number] Information not available 05/18/2022 Do You Use Insect Repellent Routinely? No Stays Inside MIGRATION.030 [id number] Information not available 05/18/2022 Where Do You Live? [facility] [email or web address] Information not available 01/08/2024 Presence Of Domestic Violence No [email or web address] Information not available 01/08/2024 Guns Present In The Home? No [email or web address] Information not available 01/08/2024 Are You Able To Care For Yourself? Yes With HH Assistance [email or web address] Information not available 01/08/2024 Are You Blind Or Do Yo Have Difficulty Seeing? Yes Legally Blind In Left Eye Blurry Vision In Right Eye [email or web address] Information not available 01/08/2024 Are You Deaf Or Do You Have Serious Difficulty Hearing? No [email or web address] Information not available 01/08/2024 General Stress Level? Low [email or web address] Information not available 01/08/2024 Live Alone Of With Others? With Others Lives With Grandson [email or web address] Information not available 01/08/2024 Do You Have A Medical Power Of Rehabilitation Worker? No [email or web address] Information not available 01/08/2024 What Was The Date Of Your Most Recent Tobacco Screening? 10/14/2024 Information not available 10/14/2024 How Many Children Do You Have? 4 Information not available 10/14/2024 What Is Your Current Pack Years? [email or web address] Information not available 01/08/2024 Do You Have Any Pets? Yes 2 Dogs [email or web address] Information not available 01/08/2024 What Is Your Relationship Status? Information not available 01/08/2024 Do You Use Your Seat Belt Or Car Seat Routinely? Yes [email or web address] Information not available 01/08/2024 Are You Sexually Active? No Information not available 01/08/2024 Do You Have Smoke And Carbon Monoxide Detectors In Your Home? Yes MIGRATION.0301 [id number] Information not available 05/18/2022 At What Age Did You Start Smoking Tobacco? 50 MIGRATION.0301 [id number] Information not available 05/18/2022 Are You Passively Exposed To Smoke? No Information not available 01/08/2024 Are There Any Smokers In Your House? No [email or web address] Information not available 01/08/2024 How Much Tobacco Do You Smoke? No Was 1 Ppw [email or web address] Information not available 04/08/2024 What Types Of Sporting Activities Do You Participate In? None [email or web address] Information not available 01/08/2024 Do You Use Sunscreen Routinely? No MIGRATION.0301 [id number] Information not available 05/18/2022 Has Tobacco Cessation Counseling Been Provided? No [email or web address] Information not available 01/08/2024 Have You Recently Traveled Abroad? No Information not available 01/08/2024 Do You Have Difficulty Walking Or Climbing Stairs? Yes Due To Visual Impairment [email or web address] Information not available 01/08/2024 Do You Have Any Dietary Restrictions? No [email or web address] Information not available 01/08/2024 Sex: Female Functional Status Question Answer Note LastModified by Organization Details LastModified Time Do you or have you ever used smokeless tobacco? Never used smokeless tobacco MIGRATION.[id number] Information not available 05/18/2022 Are you currently employed? No [email or web address] Information not available 01/08/2024 Do you have transportation difficulties? No MIGRATION.030 [id number] Information not available 05/18/2022 Are you able to care for yourself independently? Yes home health care 3 days a week children help too grandson lives with her MIGRATION.030 520037 Information not available 05/18/2022 Do you have difficulty dressing, bathing, grooming, or toileting? No MIGRATION.030 [id number] Information not available 05/18/2022 Do you or have you ever used e-cigarettes or vape? Never used electronic cigarettes MIGRATION.[id number] Information not available 05/18/2022 What is your exercise level? None Advised patient she can do daily stretches and chair aerobics Information not available 01/08/2024 Do you use any illicit or recreational drugs? No [email or web address] Information not available 01/08/2024 Do you or have you ever used any other forms of tobacco or nicotine? No [email or web address] Information not available 01/08/2024 What is your level of alcohol consumption? None MIGRATION.030 [id number] Information not available 05/18/2022 Are you able to walk independently without assistance or assistive devices? YESWOREST MIGRATION.[id number] Information not available 05/18/2022 Do you have difficulty doing errands alone? Yes due to visual impairment [email or web address] Information not available 01/08/2024 What is your occupation? retired MIGRATION.030 037772 Information not available 05/18/2022 Mental Status Question Answer Note LastModified by Organizat ion Details LastModified Time Do you feel stressed (tense, restless, nervous, or anxious, or unable to sleep at night)? [id number] [email or web address] Information not available 01/08/2024 Do you have difficulty concentrating, remembering or making decisions? No MIGRATION.[id number] 26 Information not available 05/18/2022 Family History Relationship Description Onset Age of this Age Resolved Age Notes LastModified by Organization Details LastModified Time Daughter Essential hypertension MIGRATION.467 [id number] Not available 05/18/2022 19:12:17 Daughter Asthma MIGRATION.573 [id number] Not available 05/18/2022 19:12:17 Mother Heart disease MIGRATION.655 [id number] Not available 05/18/2022 19:12:17 Brother History of calculus of kidney MIGRATION.280 [id number] Not available 05/18/2022 19:12:17 Brother Asthma MIGRATION.380 [id number] Not available 05/18/2022 19:12:17 Medical History Condition Response BLINDNESS N RHEUMATIC FEVER N KIDNEY STONES N BLADDER PROBLEMS N MRSA N OTHER # 1 N POLIO N LUNG DISEASE/DISORDER N HISTORY OF DRUG ABUSE N RADIATION / CHEMOTHERAPY N COPD Y Other # 2 N BLOOD DISEASES N SURGERY N EAR OR HEARING PROBLEMS N MUMPS N SHINGLES N FEMALE PROBLEMS / INFECTIONS N DEPRESSION (INCLUDING POST ) N BOWEL PROBLEMS N FAILED BACK SYNDROME N STROKE/TIA N THYROID DISEASE Y ULCERS N BENIGN PROSTATIC HYPERPLASIA N MEASLES N CERVICALGIA N TB SKIN TEST N HYPOTENSION N MYOCARDIAL INFARCTION N PARAPELGIA N OBESITY N GERD/NAUSEA N ANEURYSM N URINARY/BLADDER/KIDNEY PROBLEMS N CORONARY ARTERY DISEASE (CAD) N MENIERE'S DISEASE N ADDICTION CONCERNS N ENDOMETRIOSIS N USE OF BLOOD THINNERS N SKIN PROBLEMS N EMPHYSEMA N GASTROINTESTINAL DISORDER N PERIPHERAL ARTERY DISEASE N MUSCLE,JOINT OR BONE PROBLEMS N GASTROINTESTINAL BLEEDING N BLOOD CLOTS N ASTHMA Y CATARACTS N Abdominal Pain N ERECTILE DYSFUNCTION N ARTERIAL INSUFFICIENCY N GI PROBLEMS N CHF N Low Testosterone N NEUROPATHY N INFERTILITY N AIDS/HIV N FRACTURES N CHEMOTHERAPY / RADIATION N VISION/EYE PROBLEMS N LIVER DISEASE N HYPERTENSION Y TOURETTE'S N ANXIETY DISORDER N BLOOD TRANSFUSION N ANEMIA/BLOOD DISORDER N CHRONIC EAR INFECTIONS N BRONCHITIS N TUBERCULOSIS N GLAUCOMA N FOOT PROBLEM N DIVERTICULITIS N SLEEP APNEA N CHICKENPOX N ALLERGIES/HAYFEVER N BACK INJECTIONS N INFECTIOUS DISEASE N PROSTATE N HEART ARRHYTHMIA N ESRD N INSOMNIA N HIGH CHOLESTEROL / HYPERLIPIDEMIA N EYE PROBLEMS N HYPERTHYROIDISM N PVD N EATING DISORDER N EDEMA N CHRONIC PAIN SYNDROME Y CAROTID BLOCKAGE N CONSTIPATION Y BACK / NECK PROBLEMS N ATHEROSCLEROSIS N BREAST PROBLEMS N DIALYSIS N POLYCYSTIC OVARIES N ECZEMA N FIBROMYALGIA N OSTEOPOROSIS N ARTHRITIS N APPENDICITIS N DIABETES, TYPE N BAD TEETH N VON WILLIBRAND'S DISEASE N HEARTBURN / REFLUX N ADD/ADHD N AUTISM SPECTRUM DISORDER (ASD) N POST LAMINECTOMY SYNDROME N HEPATITIS / LIVER DISEASE N PULMONARY DISEASE N GOUT N SLEEP DISORDER N ALZHEIMER'S DISEASE N PAIN N DEMENTIA N HERPES N SEIZURES/EPILEPSY N HEADACHES/MIGRAINES N VASCULAR DISEASE N PACEMAKER N DIZZINESS N HEART DISEASE/HEART PROBLEMS N KIDNEY DISEASE N SCARLET FEVER N MULTIPLE SCLEROSIS N MENTAL DISORDER/ILLNESS N DEVELOPMENTAL OR BEHAVIORAL DISORDERS N NEUROPSYCHOLOGICAL N CANCER: SPECIFY N CARDIAC ARRHYTHMIA N PNEUMONIA N ATRIAL FIBRILLATION N Gall Stones N PULMONARY EMBOLISM N AUTOIMMUNE DISEASE N Gynecological History Statement/Question Response How many live births 4 Date of Last Colonoscopy Date of Last Mammogram Date of LMP Most Recent Bone Density Date of Last Pap Current Control Method Hysterectom y Obstetrics History GPAL:G 4 P 4 0 0 4 Type Value Multiple Births 0 Full Term 4 Induced 0 Spontaneous 0 Premature 0 Living 4 Ectopics 0 Total 4 Past Encounters Encounter ID Performer Location Encounter Start Date Encounter Closed Date Diagnosis/Indication Diagnosis SNOMED-CT Code Diagnosis ICD10 Code Diagnosis IMO Codes Diagnosis Note [id number] CORTEZ Alvarez [facility] Primary Care [place] [address] [place] [address] 06/10/2020 00:00:00 06/10/2020 10:32:[id number] [facility] Primary Care [place] [address] [place] [address] 07/08/2020 00:00:00 07/09/2020 20:29:38 [id number] [facility] Primary Care [place] [address] [place] [address] 01/11/2021 00:00:00 01/11/2021 11:04:[id number] [facility] Primary Care [place] [address] [place] [address] 04/27/2021 00:00:00 04/27/2021 11:11:[id number] [facility] Primary Care [place] [address] [place] [address] 06/21/2021 00:00:00 06/21/2021 11:42:[id number] [facility] Primary Care [place] [address] [place] [address] 09/13/2021 00:00:00 09/13/2021 19:09:05 [id number] Rosa Pang MD [facility] Primary Care [place] [address] [place] [address] 09/27/2021 00:00:00 09/27/2021 12:11:46 [id number] Rosa Pang MD [facility] Primary Care [place] [address] [place] [address] 12/28/2021 00:00:00 01/16/2022 23:02:[id number] [facility] Primary Care [place] [address] [place] [address] 01/25/2022 00:00:00 01/25/2022 16:24:29 [id number] ADELINE Gilbert [facility] Primary Care [place] [address] [place] [address] 02/08/2022 00:00:00 02/09/2022 08:17:32 [id number] ADELINE Gilbert [facility] Primary Care [place] [address] [place] [address] 02/15/2022 00:00:00 02/15/2022 12:34:16 [id number] ADELINE Gilbert [facility] Primary Care [place] [address] [place] [address] 02/22/2022 00:00:00 02/23/2022 08:59:[id number] [facility] Primary Care [place] [address] [place] [address] 03/01/2022 00:00:00 03/01/2022 17:45:[id number] [facility] Primary Care [place] [address] [place] [address] 03/29/2022 00:00:00 03/29/2022 12:33:[id number] 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 Primary Care [address] [place] [address] 02/13/2023 10:08:08 02/13/2023 10:46:24 Pain of bilateral knee joints 4712065494 64340 M25.561 M25.562 Bilateral injections today, repeat in 3 months if neededtram adol q6 hours prndiscuss ed potential constipati on, confusion, increased risk of falls, use sparinglyt ylenol 1000 mg po tid prn Cough 28579215 R05.9 call/retur n if no improvemen t in 1-2 days or sooner if neededrevi ewed s/s that warrant urgent/pam rgent eval in meantime [id number] Rosa Pang MD [facility] Primary Care [address] [place] [address] 06/06/2023 09:45:42 06/06/2023 10:32:27 Adult health examination 374156808 Z00.00 Declines vaccinesDe clines mammogram and bone densityche ck labsno colon cancer screen neededno cervical cancer screen neededrema in nonsmoker Hypothyroidism 98722084 E03.9 Epigastric pain 55483186 R10.13 feeling better after 1 month on pantoprazo le but having some recurrent episodesch bess RUQ USstay off PPI for now Asthma 684274924 J45.90 9 Cobalamin deficiency 190 913952 E53.8 Essential hypertension 00731328 I10 Hypercalcemia 51262396 E 83.52 Vitamin D deficiency 347 80302 E55.9 [id number] [address] FaustinP-C [facility] Primary Care [facility] [address] [facility] [address] [place] [address] 09/12/2023 09:52:26 09/12/2023 12:33:16 Pain of bilateral knee joints 1497318703 10395 M25.561 M25.562 justin knee injection givenpain management referral given Asthma 638040843 J45.90 9 Renewal of prescription 977708510 Z76.0 Constipation 57242129 K5 9.00 Drug of abuse screen 897 43686 Z02.83 [id number] CORTEZ Camacho-C [facility] Primary Care [facility] [address] [facility] [address] [place] [address] 11/14/2023 10:07:54 11/14/2023 10:40:42 Wheezing 15283438 R06.2 Shortness of breath since Monday, wheezing since Monday.Pat ient refusing chest x-ray however grandson said to put the order in and he will try to get her to agree.Will follow up in 2 days if symptoms are not improving. Renewal of prescription 488489315 Z76.0 Cough 26429840 R05.9 Asthma 348175773 J45.90 9 Doing well with maintenanc e inhalers, will refill as needed. Pain of bi lateral knee joints 1422120635 06561 M25.561 M25.562 UDS on 09/11 was not consistent with medication list, patient reports she has been out of medication for 2 months which is why her UDS was negative however [facility] shows the prescripti on was sold on 08/25/23 and 09/26/23. Will f/u with pharmacy and contact Candelario with f/u. [id number] Leigh Ann abad MD [facility] Internal Med [facility] [address] [place] [address] 01/08/2024 09:52:26 01/08/2024 11:15:17 Adult health examination 813762579 Z00.00 Screening for disorder 220451307 Z13.9 Screening - NAD 34650725 3 Z13.9 C-scope/Ma mmogram/PA P: Not doing anymore, no complaints DEXA: Get this Get yearly flu shot, get tdap if not done, get shingrix vaccineCan do COVID 19 vaccine and its boostersCa n do RSV vaccine RTC in 3 months, do labs, ER if worse, she and her grandson did verbalize her understand ing of the above Chronic pain 24832171 G8 9.29 On tramadol, will need to wean off or see pain management , advised on the side effects of chronic pain medication use Chronic ob structive pulmonary disease 60253173 J44.9 On albuterolO n symbicortO n HHNsNeeds to see Dr Cotto Essential hypertension 85400651 I10 On amlodipine 5mg dailyOn losartan 100mg dialy Chronic constipation 236 754454 K59.09 Admitted and d/c from [facility] for fecal impaction and colitisOn linzess Hypothyroidism 83693640 E03.9 On levothyrox ine 75mcgs daily Screening for osteoporosis 796854370 Z13.820 Serum darion min B12 below reference range 201000806 R79.89 Pain of bi lateral knee joints 0160340629 50920 M25.561 M25.562 Get a referral to [facility] Visual impairment 872297 003 H54.7 Get a referral to eye Unsteady when walking 22 495304 R26.89 [facility] that [id number] Leigh Ann abad MD [facility] Primary Care [facility] [address] [facility] [address] [place] [address] 04/03/2024 09:09:45 04/03/2024 09:31:20 [id number] MD NEFTALY De La Torre_[facility] Primary Care [facility] [address] [facility] [address] [place] [address] 04/08/2024 10:02:02 04/08/2024 10:41:17 Screening - NAD [id number] Z13.9 C-scope/Ma mmogram/PA P: Not doing anymore, no complaints DEXA: Get this Get yearly flu shot, get tdap if not done, get shingrix vaccineCan do COVID 19 vaccine and its boostersCa n do RSV vaccine RTC in 3 months, do labs, ER if worse, she and her grandson did verbalize her understand ing of the above Chronic pain 64068703 G8 9.29 On tramadol, will need to wean off or see pain management , advised on the side effects of chronic pain medication use Chronic ob structive pulmonary disease 82211243 J44.9 On albuterolO n symbicortO n HHNsNeeds to see Dr Cotto Essential hypertension 73415625 I10 On amlodipine 5mg dailyOn losartan 100mg dialy Chronic constipation 236 243570 K59.09 Admitted and d/c from [facility] for fecal impaction and colitisOn linzess, takes it only as needed Hypothyroidism 76128170 E03.9 On levothyrox ine 75mcgs daily, very elevated TSH, will increase the levothyrox ine to 100mcgs daily with UnithroidR epeat the labs Screening for osteoporosis 515840739 Z13.820 Serum darion min B12 below reference range 367137649 R79.89 Pain of bi lateral knee joints 4130797140 18637 M25.561 M25.562 Get a referral to ortho Visual impairment 412178 003 H54.7 Get a referral to eye MD Unsteakaren when walking 22 836260 R26.89 States that she does have a walker at homeContin ue with HH/PT Chronic low back pain 27 8269248 M54.50 Is on tramadol, advised on the ill effects of prolonged use of this drug, will refer to [facility] [id number] Leigh Ann abad MD [facility] Aicha weiner [address] [facility] [address] [place] [address] 07/08/2024 09:57:34 07/08/2024 10:40:56 Screening - NAD [id number] Z13.9 C-scope/Ma mmogram/PA P: Not doing anymore, no complaints DEXA: Get this Get yearly flu shot, get tdap if not done, get shingrix vaccineCan do COVID 19 vaccine and its boostersCa n do RSV vaccine RTC in 3 months, do labs, ER if worse, she and her grandson did verbalize her understand ing of the above 45 minutes spent with her and her grandson Candelario, labs provided, medication s refilled and referrals given Chronic pain 10257448 G8 9.29 On tramadol, will need to wean off or see pain management , advised on the side effects of chronic pain medication use OV 07/08/2024 :Referral for pain management provided to grandchristal Palomino Chronic ob structive pulmonary disease 70300796 J44.9 On albuterolO n symbicortO n HHNsNeeds to see Dr Cotto Essential hypertension 56903217 I10 On amlodipine 5mg dailyOn losartan 100mg dialy Chronic constipation 236 569488 K59.09 Admitted and d/c from [facility] for fecal impaction and colitisOn linzess, takes it only as needed Hypothyroidism 73315493 E03.9 On Unithroid 100mcgs daily, renewed 07/08/2204 Repeat the labs Screening for osteoporosis 953908565 Z13.820 Serum darion min B12 below reference range 870058295 R79.89 Pain of bi lateral knee joints 3757628802 90310 M25.561 M25.562 Get a referral to ortho Visual impairment 977585 003 H54.7 Get a referral to eye MD Unsteady when walking 22 020561 R26.89 States that she does have a walker at homeContin ue with HH/PT Chronic low back pain 27 4860859 M54.50 Is on tramadol, advised on the ill effects of prolonged use of this drugShould see pain management Constipation 40056824 K5 9.00 [id number] Leigh Ann abad MD S_[facility] Primary Care [facility] [address] [facility] [address] [place] [address] 10/14/2024 09:50:38 10/14/2024 10:39:16 Screening - NAD 544794221 Z13.9 C-scope/Ma mmogram/PA P: Not doing anymore, no complaints DEXA: Get this Get yearly flu shot, get tdap if not done, get shingrix vaccineCan do COVID 19 vaccine and its boostersCa n do RSV vaccine RTC in 3 months, do labs, ER if worse, she and her daughter did verbalize her understand ing of the above Chronic pain 97650208 G8 9.29 On tramadol, will need to wean off or see pain management , advised on the side effects of chronic pain medication use OV 07/08/2024 :Referral for pain management provided to munira Palomino OV : S/p MRIOn tramadolSe es Lori Courtney Chronic ob structive pulmonary disease 74209016 J44.9 On albuterolO n symbicortO n HHNsNeeds to see Dr Cotto Essential hypertension 80027640 I10 On amlodipine 5mg dailyOn losartan 100mg dialy Chronic constipation 236 936458 K59.09 Admitted and d/c from [facility] for fecal impaction and colitisOn linzess, takes it only as needed Hypothyroidism 93254444 E03.9 On Unithroid 100mcgs daily, renewed 07/08/2204 Repeat the labs Screening for osteoporosis 234777498 Z13.820 Serum darion min B12 below reference range 929733467 R79.89 Pain of bi lateral knee joints 6266490181 49997 M25.561 M25.562 Get a referral to ortho Visual impairment 549216 003 H54.7 Get a referral to eye MD Chronic low back pain 27 7294304 M54.50 Is on tramadol, advised on the ill effects of prolonged use of this drugShould see pain management MRI SI J/MRI L Spine: 07/31/2024 See pain management Chronic ki dney disease 825935688 N18.9 [id number] Repeat the labs, may need to see nephrology Health Concerns Section Related Observation LastModified by Organization Detai ls LastModified Time None Recorded Concern Status LastModified by Organization Details LastModified Time None Recorded Advance Directives Directive N: Payers Insurance Date Sequence Insurance Name Policy Number Policy Cronin Covered Member ID Cronin Member ID Guarantor Name 10/14/2024 1 [facility] (MEDICARE REPLACEMENT/A DVANTAGE - HMO) [id number] Letitia Cherry [id number] Eda Cherry Notes Date Note Type Note Provider Name and Address Organization Details Recorded Time 024 text/ht ml OV 01/08/2024:Here to establish care Present Hx:Chronic painBil knee painHTNChronic constipationHypothyroidismVisual impairmentUnsteady gait Here to discuss above and to get labs, she is here with her grandson, is very unsteady on her gait, does have a walker at home but does not use this Leigh Ann Pereira MD [address], [facility] [address], [place], [address], [facility] [place] [facility] 01/08/2024 17:10:56 025 text/ht ml OV 01/08/2024:Here to establish care Present Hx:Chronic painBil knee painHTNChronic constipationHypothyroidismVisual impairmentUnsteady gait Here to discuss above and to get labs, she is here with her grandson, is very unsteady on her gait, does have a walker at home but does not use this OV 04/08/2024: Here for her f/u apt, she is here with her GS and is now c/o itching in the back, she still has LBP, has difficulty getting up from a sitting position, but is able to ambulate on up, feels that this is her 'sciatica' with pain in the R>L lower buttock area, no N/T or weakness in the legs, no loss of bowel or bladder control, she did get HH and PT and states that this has helped her, she did do the labs Leigh Ann Pereira MD [address], [facility] [address], [place], [address], [facility] [employer] [facility] 04/08/2024 10:43:29 025 text/ht ml OV 01/08/2024:Here to establish care Present Hx:Chronic painBil knee painHTNChronic constipationHypothyroidismVisual impairmentUnsteady gait Here to discuss above and to get labs, she is here with her grandson, is very unsteady on her gait, does have a walker at home but does not use this OV 04/08/2024: Here for her f/u apt, she is here with her GS and is now c/o itching in the back, she still has LBP, has difficulty getting up from a sitting position, but is able to ambulate on up, feels that this is her 'sciatica' with pain in the R>L lower buttock area, no N/T or weakness in the legs, no loss of bowel or bladder control, she did get HH and PT and states that this has helped her, she did do the labs OV 07/08/2024: Here for her f/u apt, she feels well now, she did see Dr Dickson and did get a shot in the R knee but states that it has not helped much, she is here with her grand son and is to do labs today Leigh Ann Pereira MD [address], [address], [place], [address], [facility] [employer] [facility] [place] 07/08/2024 10:34:04 025 text/ht ml OV 01/08/2024:Here to establish care Present Hx:Chronic painBil knee painHTNChronic constipationHypothyroidismVisual impairmentUnsteady gait Here to discuss above and to get labs, she is here with her grandson, is very unsteady on her gait, does have a walker at home but does not use this OV 04/08/2024: Here for her f/u apt, she is here with her GS and is now c/o itching in the back, she still has LBP, has difficulty getting up from a sitting position, but is able to ambulate on up, feels that this is her 'sciatica' with pain in the R>L lower buttock area, no N/T or weakness in the legs, no loss of bowel or bladder control, she did get HH and PT and states that this has helped her, she did do the labs OV 07/08/2024: Here for her f/u apt, she feels well now, she did see Dr Dickson and did get a shot in the R knee but states that it has not helped much, she is here with her grand son and is to do labs today OV 10/14/2024: Here for her f/u apt, she is doing well today, she is here with Ana her daughter, she now see pain management and has done her MRI spine Leigh Ann Pereira MD [address], [address], [place], [address], [facility] 10/14/2024 10:42:47 OBGyn Episode No OBEpisode recorded.
--- OUTSIDE RECORDS SUMMARY | 2025-01-01 07:35 | XMS_ITS | Data Portability ---
Author Organization DIVYA OANHMeme Soler Address [address] [place] [address] Assessment No assessment recorded. Plan of Treatment Reminders Order Date Submit Date Provider Last Modified By Organization Details Last Modified Time Details Appointments None recorded. Lab None recorded. Referral None recorded. Procedures None recorded. Surgeries None recorded. Imaging None recorded. Medication Orders amlodipine 5 mg tablet 2016 017 [facility] #42828, [address] [place], [place], [id number], 7 17:47:03 losartan 100 mg tablet 2016 017 [facility] #01133, [address] [place], [place], [id number], 7 17:47:06 levothyrox ine 125 mcg tablet 2016 017 [facility] #79871, [address] [place], [place], [id number], 7 17:47:03 albuterol sulfate HFA 90 mcg/actuat ion aerosol inhaler 2016 017 [facility] #11906, [address] [place], [place], [id number], 7 17:47:02 Constulose 10 gram/15 mL oral solution 2016 017 [facility] #83340, [address] [place], [place], [id number], 7 13:01:10 metoclopra mide 10 mg tablet 2016 017 [facility] #25430, [address], [place], [place], [id number], 7 13:01:05 amlodipine 5 mg tablet 2016 017 [facility], [address], [place], [place], [id number], 7 13:01:08 losartan 100 mg tablet 2016 017 [facility], [address], [id number], 7 13:01:08 levothyrox ine 125 mcg tablet 2016 017 [facility] #49268, [address], [id number], 7 13:01:07 albuterol sulfate HFA 90 mcg/actuat ion aerosol inhaler 2016 017 [facility], [address], [place], [place], [id number], 7 13:01:09 Symbicort 160 mcg-4.5 mcg/actuat ion HFA aerosol inhaler 2016 017 [facility] #91252, [address], [id number], 7 13:01:08 Constulose 10 gram/15 mL oral solution 2015 016 [facility] #06464, [address], [id number], 6 11:31:31 metoclopra mide 10 mg tablet [address] [facility] #68969, [address], [place], [place], [id number], 6 11:31:35 amlodipine 5 mg tablet [address] [facility] #12003, [address], [place], [place], [id number], 6 11:31:32 losartan 100 mg tablet [address] [facility] #34802, [address], [place], [place], [id number], 6 11:31:34 levothyrox ine 100 mcg tablet 2015 016 [facility] #60458, [address], [place], [place], [id number], 7 13:00:06 amlodipine 5 mg tablet 2015 016 [facility] #93364, [address], [place], [place], [id number], 6 15:13:13 losartan 100 mg tablet 2015 016 [facility] #87135, [address], [place], [place], [id number], 6 15:13:13 azithromyc in 250 mg tablet 2015 016 [facility] #39983, [address], [place], [place], [id number], 7 12:56:26 Patient TargetsNo targets recorded. Patient Instructions Encounter Date Encounter Id Patient Instructions Last Modified By Organization Details Last Modified Time 08/14/2015 [id number] deciding about using medicines to quit smoking strice Not available 08/18/2015 12:14:21 Quitting Tobacco : Care Instructions strice Not available 08/18/2015 12:14:21 bronchitis: care instructions strice Not available 08/18/2015 12:14:21 chronic obstructive pulmonary disease (COPD): care instructions strice Not available 08/18/2015 12:14:20 learning about copd and how to prevent lung infections strice Not available 08/18/2015 12:14:21 08/18/2015 [id number] deciding about using medicines to quit smoking strice Not available 08/18/2015 12:14:21 Quitting Tobacco : Care Instructions strice Not available 08/18/2015 12:14:21 hypothyroidism: care instructions strice Not available 08/18/2015 12:14:21 chronic obstructive pulmonary disease (COPD): care instructions strice Not available 08/18/2015 12:14:21 learning about copd and how to prevent lung infections strice Not available 08/18/2015 12:14:21 11/02/2015 [id number] deciding about using medicines to quit smoking strice Not available 11/02/2015 11:41:29 Quitting Tobacco : Care Instructions strice Not available 11/02/2015 11:41:29 hypothyroidism: care instructions strice Not available 11/02/2015 11:41:29 chronic obstructive pulmonary disease (COPD): care instructions strice Not available 11/02/2015 11:41:29 learning about copd and how to prevent lung infections strice Not available 11/02/2015 11:41:29 03/29/2016 [id number] deciding about using medicines to quit smoking strice Not available 03/29/2016 14:29:06 Quitting Tobacco : Care Instructions strice Not available 03/29/2016 14:29:06 hypothyroidism: care instructions strice Not available 03/29/2016 14:29:06 chronic obstructive pulmonary disease (COPD): care instructions strice Not available 03/29/2016 14:29:05 learning about copd and how to prevent lung infections strice Not available 03/29/2016 14:29:06 08/23/2016 [id number] deciding about using medicines to quit smoking strice Not available 08/24/2016 18:18:38 Quitting Tobacco : Care Instructions strice Not available 08/24/2016 18:18:38 hypothyroidism: care instructions strice Not available 08/24/2016 18:18:38 chronic obstructive pulmonary disease (COPD): care instructions strice Not available 08/24/2016 18:18:38 learning about copd and how to prevent lung infections strice Not available 08/24/2016 18:18:38 adjustment disorder: care instructions strice Not available 08/24/2016 18:18:38 Reason for Referral None Reported. Problems Name Problem SNOMED Code Status Onset Date Resolution Date Notes Provider Name and Address Organization Details Recorded Time Hypothyroidism 80567321 Active Ksenia Ayoub MD Attn: Accountin g,[address] 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, [place], [address], [place] [facility] 6 11:31:15 Adjustment disorder with depressed mood 91659471 Active Ksenia Ayoub MD Attn: Accountin g,[address] [facility], [place], [address], [place] [facility] 5 13:10:01 Chronic constipation 020742538 Active Ksenia Ayoub MD Attn: Accountin g,[address] [facility], [place], [address], [place] [facility] 6 11:31:15 Tobacco dependence syndrome 07375026 Henri Ayoub MD Attn: Accountin g,[address] [facility], [place], [address], [place] - [facility] 6 11:31:15 Chronic obstructive pulmonary disease 93594075 Henri Ayoub MD Attn: Accountin g,[address] [facility], [place], [address], [place] - [facility] 6 11:31:15 Hypertensive disorder 18278197 Henri Ayoub MD Attn: Accountin g,[address] [facility], [place], [address], [facility] - SI 6 11:31:15 Acute bronchitis 32237420 Active Ksenia Ayoub MD Attn: Khari lackey,[address], [place], [address], [facility] 6 11:17:24 Problem Notes None recorded. Procedures Surgical History Date Name Laterality Status Provider Name and Address Organization Details Recorded Time [facility] 09:57:23 Hysterectomy completed [facility] 05/09/2014 09:57:23 Imaging Results None recorded. Procedure Notes None recorded. Medical Equipment None Reported. Allergies Allergen ID Allergen Name Allergen Category Reaction Reaction Severity Criticality Documentation Date Start Date Code Code System Note Provider Name and Address Organization Details Recorded Time 65496 morphine medicatio n itching Not available Not available 05/09/2014 7052 [facility] 5 09:57:23 77193 tomato allergeni c extract food hives severe Not available 05/09/2014 42509 9 RxNorm Throa t close s [facility] rashi [facility] 5 09:57:23 Medications Name Sig Start Date Stop Date Status Note LastModified by Organization Details LastModified Time azithromyci n 250 mg tablet TAKE 2 TABLETS (500 MG) BY ORAL ROUTE ONCE DAILY FOR 1 DAY THEN 1 TABLET (250 MG) BY ORAL ROUTE ONCE DAILY FOR 4 DAYS 03/29 completed Not Available Not Available Not Available Generlac 10 gram/15 mL oral solution TAKE 15 ML BY MOUTH EVERY DAY 2016 active Not Available Not Available Not Avai lable amlodipine 5 mg tablet TAKE 1 TABLET BY MOUTH EVERY DAY active Not Available Not Available No t Available cyclopentol ate 1 % eye drops active Not Available Not Available Not Available levothyroxi ne 100 mcg tablet TAKE 1 TABLET BY MOUTH EVERY DAY 03/29 completed Not Available Not Available Not Available prednisolon e acetate 1 % eye drops,suspe nsion active Not Available Not Available Not Available levothyroxi ne 125 mcg tablet TAKE 1 TABLET BY MOUTH EVERY DAY active Not Available Not Available No t Available gabapentin 300 mg capsule one tablet tid 03/29 completed Not Available Not Available Not Available albuterol sulfate HFA 90 mcg/actuati on aerosol inhaler Inhale 2 puffs every 4 hours by inhalatio n route as directed for 30 days. 2016 active Not Available Not Available Not Avai lable losartan 100 mg tablet TAKE 1 TABLET BY MOUTH EVERY DAY active Not Available Not Available No t Available metoclopram guido 10 mg tablet Take 1 tablet every day by oral route as needed for 30 days. active Not Available Not Available No t Available tobramycin 0.3 %-dexametha sone 0.1 % eye drops,suspe nsion active Not Available Not Available Not Available Symbicort 160 mcg-4.5 mcg/actuati on HFA aerosol inhaler Inhale 2 puffs twice a day by inhalatio n route for 30 days. 2016 active Not Available Not Available Not Avai lable lactulose 10 gram/15 mL (15 mL) oral solution Take 15 mL every day by oral route for 30 days. 03/29 completed Not Available Not Available Not Available Vitals Date Recorded Body height Body weight Body mass index (BMI) Body temperature Oxygen saturation Oxygen saturation in Arterial blood by Pulse oximetry Heart rate Systolic And Diastolic Provider Name and Address Organization Details Last Updated DateTime 7 154.94 cm 60961.4 2 g 24.4 kg/m2 97.5 [degF] 98 % 98 % 75 /min 136/90 mm[Hg] Juan C Escamilla MA [facility] 7 12:26:57 Date Recorded Body weight Body mass index (BMI) Body temperature Oxygen saturation Oxygen saturation in Arterial blood by Pulse oximetry Heart rate Body height Systolic And Diastolic Provider Name and Address Organization Details Last Updated DateTime 6 19233.2 39133 g 24.2 kg/m2 98 [degF] 99 % 99 % 75 /min 154.94 cm 190/96 mm[Hg] Juan C Escamilla MA [facility] SI 6 16:30:35 Date Recorded Systolic And Diastolic Provider Name and Address Organization Details Last Updated DateTime 08/18/2015 146/70 mm[Hg] Ksenia Ayoub MD Attn: Accounting,[address] [facility], [place], [address], [facility] 08/18/2015 10:49:11 Date Recorded Systolic And Diastolic Provider Name and Address Organization Details Last Updated DateTime 08/18/2015 162/88 mm[Hg] Juan C Escamilla MA [facility] 08/18/2015 10:01:11 Date Recorded Body height Body weight Body mass index (BMI) Heart rate Oxygen saturation Oxygen saturation in Arterial blood by Pulse oximetry Body temperature Systolic And Diastolic Provider Name and Address Organization Details Last Updated DateTime 7 154.94 cm 45615.2 9 g 24.5 kg/m2 70 /min 97 % 97 % 97.6 [degF] 140/74 mm[Hg] Juan C Escamilla MA [facility] 7 09:32:47 Date Recorded Heart rate Body weight Body temperature Body mass index (BMI) Body height Oxygen saturation Oxygen saturation in Arterial blood by Pulse oximetry Systolic And Diastolic Provider Name and Address Organization Details Last Updated DateTime 6 60 /min 46162.6 24325 g 97.8 [degF] 24.1 kg/m2 154.94 cm 97 % 97 % 134/78 mm[Hg] Juan C Escamilla MA [facility] 6 10:59:10 Social History Question Answer Notes LastModified by Organizat ion Details LastModified Time Tobacco Smoking Status Current Every Day Smoker Rosalindrashi Zuhair godwin, [facility] 05/09/2014 09:57:23 Do You Have An Advance Directive? No Information not available 05/09/2014 What Is Your Level Of Caffeine Consumption? Moderate Information not available 05/09/2014 Live Alone Or With Others? With Others Information not available 05/09/2014 How Much Tobacco Do You Smoke? 0.5 PPD Information not available 05/09/2014 Sex: Unknown Functional Status Question Answer Note LastModified by Organization D etails LastModified Time What is your level of alcohol consumption? None Information not available 05/09/2014 Are you able to care for yourself independently? No Information not available 05/09/2014 Mental Status None recorded. Family History Nothing Reported. Medical History Condition Response Other Y Thyroid Problems Y Kidney or Bladder Problems Y Depression Y Asthma Y Gynecological HistoryNo gynecological history recorded. Obstetrics History GPAL:G 0 P 0 0 0 0 Past Encounters Encounter ID Performer Location Encounter Start Date Encounter Closed Date Diagnosis/Indication Diagnosis SNOMED-CT Code Diagnosis ICD10 Code Diagnosis IMO Codes Diagnosis Note [id number] MD Sebastián Freeman (Adult Med) [address] [place] [address] 05/09/2014 09:40:50 05/09/2014 12:18:59 Hypothyroidism 04048432 Blind left eye 976404688 Adjustment disorder with depressed mood 88685987 [id number] MD Sebastián Freeman (Adult Med) [address] [place] [phone] 09/29/2014 11:58:51 09/30/2014 10:16:51 Hypothyroidism 51127061 Blind left eye 255212698 Adjustment disorder with depressed mood 41288122 [id number] MD Sebastián Freeman (Adult Med) [address] [place] [address] 01/16/2015 11:36:50 01/16/2015 13:11:30 Hypothyroidism 45589012 E03.9 Blind left eye 635100044 H54.42 Adjustment disorder with depressed mood 49927805 F43.21 Chronic constipation 236 002955 K59.00 [id number] MD Sebastián Freeman (Adult Med) [address] [place] [address] 05/04/2015 12:09:31 05/04/2015 13:10:59 Hypothyroidism 59117733 E03.9 Tobacco de pendence syndrome 67536305 F17.290 Chronic ob structive pulmonary disease 67537705 J44.9 Chronic constipation 236 373605 K59.00 [id number] MD Sebastián Freeman (Adult Med) [address] [place] [address] 08/14/2015 14:32:46 08/14/2015 16:52:49 Hypertensive disorder 69388280 I10 Chronic ob structive pulmonary disease 46593399 J44.9 Tobacco de pendence syndrome 86152654 F17.290 Blind left eye 283652933 H54.42 Acute bronchitis 7642081 2 J20.9 [id number] MD Sebastián Freeman (Adult Med) [address] [place] [id number] 08/18/2015 09:38:16 08/18/2015 11:11:45 Blind left eye 228354245 H54.42 Chronic ob structive pulmonary disease 13259880 J44.9 Hypertensive disorder 38 011630 I10 Hypothyroidism 19185788 E03.9 Tobacco de pendence syndrome 54801189 F17.290 [id number] MD Sebastián Freeman (Adult Med) [address] [place] [address] 11/02/2015 10:23:15 11/02/2015 11:33:11 Blind left eye 098153695 H54.42 Chronic constipation 236 689064 K59.00 Chronic ob structive pulmonary disease 51894000 J44.9 Hypertensive disorder 38 603985 I10 Hypothyroidism 96074348 E03.9 Tobacco de pendence syndrome 43140960 F17.702 [id number] [facility] [address] [place] [id number] 03/29/2016 11:37:24 03/29/2016 13:04:28 Chronic obstructive pulmonary disease 58173756 J44.9 Chronic constipation 236 733506 K59.00 Blind left eye 743845413 H54.42 Hypertensive disorder 38 830032 I10 Hypothyroidism 81731782 E03.9 Tobacco de pendence syndrome 97047574 F17.290 Acute bronchitis 2782545 2 J20.9 [id number] MD Sebastián Freeman (Adult Med) [address] [place] [id number] 08/23/2016 09:56:28 08/24/2016 14:25:02 Chronic obstructive pulmonary disease 31729642 J44.9 Blind left eye 062115105 H54.42 Hypertensive disorder 38 586490 I10 Hypothyroidism 85906093 E03.9 Tobacco de pendence syndrome 40800555 F17.290 Adjustment disorder with depressed mood 27947508 F43.21 Under the care of her psychiatri st. Health Concerns Section Related Observation LastModified by Organization Detai ls LastModified Time None Recorded Concern Status LastModified by Organization Details LastModified Time None Recorded Advance Directives Directive N: Payers Insurance Date Sequence Insurance Name Policy Number Policy Cronin Covered Member ID Cronin Member ID Guarantor Name 06/08/2015 2 [place] WHEN MEDICARE OR MEDICARE REPLACEMENT PRIMARY) Eda Sak [id number] Eda Dilip 08/24/2016 [place] [facility] Letitia Cherry [id number] Eda Cherry 04/13/2015 1 [place] Eda Sak [id number] Eda Cherry 08/24/2016 1 [facility] (MEDICARE REPLACEMENT/AD VANTAGE - HMO) [id number] Letitia Cherry [id number] E[facility] Notes Date Note Type Note Provider Name and Address Organization Details Recorded Time 08/14/2015 text/html Elevated BP while at [facility] on 08/10/2015 for the eye surgery which has been cancelled. NKDA, smokes, chest cold recently. Ksenia Ayoub MD Attn: Accounting,[address] [place], [address], [facility] 08/18/2015 11:17:27 11/02/2015 text/html 1. Recent right eye cataract operation, 2. Refills of medications. Came in with her daughter. Ksenia Ayoub MD Attn: Accounting,[address] [place], [address], [facility] 11/02/2015 11:31:20 OBGyn Episode No OBEpisode recorded.
[2025-01-01 07:38] VITALS: BP 141/90; PULSE 80; RESP 16; TEMP 36.7; O2SAT 99
--- NOTE | 2025-01-01 08:24 | PC.NURSE ---
patient ambulated to the bathroom with a 1 assist, had some unsteadiness in her gait.
--- NOTE | 2025-01-01 08:33 | ED.ABDPAIN ---
HPI - Abdominal Pain General Chief Complaint: Abdominal Pain Stated Complaint: CONSTIPATION Time Seen by Provider: 01/01/25 07:49 Source: patient and family (daughter Melinda) Mode of arrival: ambulatory Limitations: no limitations History of Present Illness HPI narrative: Patient presents initially with report of constipation. She clarifies that her rectum feels swollen/sore and this is why she is unable to have a bowel movement. Takes Linzess 2x/week. Has had 2 stools that were soft. Uses magnesium citrate. Reports a history of a bowel obstruction that led to a hospitalization but denies any surgical intervention or NG tube insertion (?). Takes tramadol daily for her knees which is why she is on a bowel regimen. Had a normal bowel movement on Monday but Monday night took Ducolax. No stool came out today. No abdominal pain. Last colonoscopy was when she was in her 60s or 70s. Not on anticoagulation. KHANH yesterday PM. No fevers/chills, nausea, vomiting. Has had a total of 3 colonoscopies, 1 or 2 at [facility]. Does not follow with a upsetter helper regularly. Pain had initially been reported as 4/10 but she reports it is actually higher than this realistically otherwise she wouldn't be here. Denies passing flatus. Blind in left eye. Her PCP is Dr Johnson. Related Data Home Medications ?Medication ?Instructions ?Recorded ?Confirmed ?Last Taken ?Type albuterol sulfate 90 mcg/actuation See Rx Instructions .Route .COMPLEX 09/22/23 01/01/25 12/25/24 History aerosol inhaler amlodipine 5 mg tablet 5 mg PO DAILY 09/22/23 01/01/25 01/01/25 History budesonide-formoterol HFA 160 See Rx Instructions .Route .COMPLEX 09/22/23 01/01/25 12/25/24 History mcg-4.5 mcg/actuation aerosol inhaler (Symbicort) ipratropium 0.5 mg-albuterol 3 mg See Rx Instructions .Route .COMPLEX 09/22/23 01/01/25 07/18/24 History (2.5 mg base)/3 mL nebulization soln losartan 100 mg tablet 100 mg PO DAILY 09/22/23 01/01/25 01/01/25 History acetaminophen 500 mg tablet 1,000 mg PO BID back and knee pain 01/01/25 01/01/25 12/31/24 18:00 History (Acetaminophen Extra Strength) levothyroxine 100 mcg tablet 100 mcg PO DAILY 01/01/25 01/01/25 01/01/25 History (Unithroid) linaclotide 72 mcg capsule 72 mcg PO .twice weekly 01/01/25 01/01/25 12/30/24 History (Linzess) polyethylene glycol 3350 17 gram 17 g PO HS 01/01/25 01/01/25 12/31/24 18:00 History oral powder packet (Miralax) sennosides 8.6 mg-docusate sodium 2 tab-cap PO DAILY 01/01/25 01/01/25 12/31/24 History 50 mg tablet (Senokot-S) tramadol 50 mg tablet 50 mg PO BID 01/01/25 01/01/25 12/31/24 18:00 History Allergies Allergy/AdvReac Type Severity Reaction Status Date / Time morphine AdvReac Unknown SLOW TO Verified 01/01/25 14:53 WAKE UP [facility] Past Medical History Medical History (Updated 01/01/25 @ 20:20 by Mi Nuñez APRN) Hypothyroidism Macular degeneration Hyperthyroidism Arthritis Bowel obstruction Diverticulosis Depression Anxiety Kidney stones Diverticulitis Asthma Hypertension 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 Alcohol intake: unknown Substance use: never Substance use type: does not use Do You Feel Safe in your Home?: Yes Lack of Transportation: No Lack of Food: Never True Current Housing: I Have Housing Concerned About Future Housing: No Difficulty Paying Gas/Electric Bills: No Difficulty Paying for Meds: No Currently Unemployed: No Education: High School Diploma/GED Difficulty w/ Childcare or Family Care: No Spiritual care concerns: No Exam Narrative: GENERAL: Well-appearing, well-nourished, in mild to moderate acute distress. HEAD: Normocephalic, atraumatic. EYES: Non injected, non icteric ENT: Nares clear, no rhinorrhea or epistaxis. Gross auditory acuity intact. NECK: Supple. No meningismus. CHEST: Speaking in full sentences. No respiratory distress. HEART: Regular rate and rhythm. . ABDOMEN: Soft, nondistended. No rigidity or guarding. Not peritoneal. No tenderness to palpation throughout EXTREMITIES: Normal range of motion. No lower extremity edema. SKIN: Warm, dry, no rash. BRAD: Performed with LEONORA Moncada present as manhole builder/customer relations assistant. Patient does have erythema around the anus. External nonthrombosed hemorrhoid present at approximately 2 o'clock to 6 o'clock position. Patient experiences exquisite tenderness with insertion of gloved lubricated finger but there are no palpable masses. Normal rectal tone. No large stool burden in the rectal vault. NEURO: No focal deficits. Alert and oriented. Answering questions. Following commands. Normal speech without aphasia or dysarthria. PSYCH: Normal mood and affect. Course Vital Signs Vital signs: Vital Signs Temperature 98.1 F 01/01/25 07:38 Pulse Rate 80 01/01/25 07:38 Respiratory Rate 16 01/01/25 07:38 Blood Pressure 141/90 H 01/01/25 07:38 Pulse Oximetry 99 01/01/25 07:38 Oxygen Delivery Room Air 01/01/25 07:38 Temperature 97.1 F L 01/02/25 10:34 Pulse Rate 71 01/02/25 10:34 Respiratory Rate 18 01/02/25 10:34 Blood Pressure 135/71 01/02/25 10:34 Pulse Oximetry 100 01/02/25 10:34 Oxygen Delivery Room Air 01/02/25 09:56 MDM - Abdominal Pain MDM Narrative Medical decision making narrative: Patient presents initially with report of constipation but later clarifies that the significant rectal pain and swelling is what is causing her to have difficulty having bowel movements. Takes tramadol for her knees. Has been on a bowel regimen. Notes she required hospitalzation for a bowel obstruction before but denies any surgeries or NG tube placement so possibly due to constipation/obstipation (?) In the emergency department she is afebrile with acceptable vital signs, only mild hypertension. For her hemorrhoids and general rectal irritation, attempted to order topical 0.3% nifedipine but this does not appear to be on formulary. I did order viscous lidocaine 2% to be applied. Trace ketones but otherwise urine does not appear infected. Mild leukocytosis. Normal renal function. Normal lactic acid. No marked electrolyte abnormalities, only mild hyponatremia. CT as below. IV fluids and TSH ordered. Discussed patient with on-call upsetter helper Dr. Richard Mora who recommends admission if patient willing to undergo colonoscopy/anoscopy. She is. She notes the lidocaine helped a little bit although she remains tearful and in pain. Dr. Ramos had noted he doesn't empirically recommend antibiotics to cover intra-abdominal onel. He does recommend trialing enema and he will put in bowel prep regimen. Discussed with hospitalist. Differential Diagnosis Differential diagnosis: Likely abdominal pain, constipation (obstipation), small bowel obstruction and other (medication/drug side effect; malignancy; proctitis; impaction; anal fissue) Lab Data Attestation: I reviewed the patient's lab results. 01/02/25 04:59 01/01/25 08:28 Labs: Lab Results 01/01/25 01/01/25 Range/Units 08:27 08:28 WBC 11.0 H (4.5-10.0) K/mm3 RBC 4.96 (4.2-5.4) M/mm3 Hgb 13.8 (12.0-15.0) g/dL Hct 40.2 (37.0-47.0) % MCV 81.0 (80-100) fl MCH 27.8 (26-34) pg MCHC 34.3 (32-36) g/dl RDW 14.8 H (11.5-14.5) % Plt Count 306 (150-375) k/mm3 MPV 10.0 (7.4-10.4) fl Immature Gran % (Auto) 0.5 (0-0.5) % Neut % (Auto) 78.5 H (45.5-73.1) % Lymph % (Auto) 13.8 L (18.3-44.2) % [place] % (Auto) 5.1 (2.6-8.5) % Eos % (Auto) 1.7 (0-4.4) % Baso % (Auto) 0.4 (0.2-1.2) % Lymph # (Auto) 1.52 (0.9-3.2) K/mm3 [place] # (Auto) 0.6 (0.1-0.6) K/mm3 Eos # (Auto) 0.2 (0-0.3) K/mm3 Baso # (Auto) 0.0 (0.0-0.1) K/mm3 Abs Immat Gran (auto) 0.05 H (0.00-0.031) K/mm3 Absolute Neuts (auto) 8.6 H (1.3-6.7) K/mm3 Absolute Nucleated RBC 0.000 (0.0-0.012) K/mm3 Nucleated RBC % 0.0 (0.0-0.2) % Sodium 135 L (137-145) mmol/L Potassium 3.8 (3.4-5.0) mmol/L Chloride 104 (98-107) mmol/L Carbon Dioxide 26 (22-30) mmol/L Anion Gap 5 (4-12) mmol/L BUN 13 D (7-17) mg/dL Creatinine 0.82 (0.7-1.0) mg/dL Estim Creat Clear Calc 34 ml/min Estimated GFR > 60 (59 - ) Glucose 96 (65-110) mg/dL Lactic Acid 1.0 (0.7-2.0) mmol/L Calcium 9.7 (8.4-10.2) mg/dL Magnesium 2.3 (1.6-2.3) mg/dL Total Bilirubin 0.8 (0.2-1.3) mg/dL AST 18 (14-36) U/L ALT 10 (6-35) U/L Alkaline Phosphatase 70 (38-126) U/L Total Protein 6.5 (6.3-8.2) g/dL Albumin 3.8 (3.5-5.1) g/dL TSH (Reflex) 0.081 L (0.465-4.68) uIU/mL Free T4 1.84 (0.78-2.19) ng/dL Total T3 0.85 (0.82-1.58) NG/ML Urine Color Yellow (Yellow) Urine Appearance Clear (Clear) Urine pH 8.0 (5.0-9.0) Ur Specific [place] 1.009 (1.001-1.035) Urine Protein Negative (Negative) mg/dL Urine Glucose (UA) Negative (Negative) mg/dL Urine Ketones Trace H (Negative) mg/dL Ur Blood (Man) Negative (Negative) Urine Nitrate Negative (Negative) Urine Bilirubin Negative (Negative) Urine Urobilinogen 0.2 (<2.0) mg/dL Leukocyte Esterase Rfl Negative (Negative) GRACIELA/UL Imaging Data Radiologist's impression: ITS Impressions Abdomen/Pelvis CT 01/01/25 09:57 IMPRESSION: 1. Anal wall thickening. Recommend evaluation/anoscopy. 2. Worrisome for stercoral colitis. 3. Additional findings as above. Discharge Plan Discharge Clinical Impression: Thickening of anal verge, Anal or rectal pain, Stercoral colitis Patient Disposition: Still a Patient Condition: Stable
[2025-01-01 08:48] LABS: Add Urine Microscopic? NO; Appearance Urine Clear (Clear); Glucose Urine UA Negative (Negative); Leukocyte Esterase Ur Negative LEU/UL (Negative); Nitrate Urine Negative (Negative); Specific Grav Ur 1.009 (1.001-1.035)
[2025-01-01 09:18] LABS: Hematocrit 40.2 % (37.0-47.0); Hemoglobin 13.8 g/dL (12.0-15.0); Immature Granulocyte Percent A 0.5 % (0-0.5); Lymphocytes Absolute Auto 1.52 K/mm3 (0.9-3.2); Mean Corpuscular HGB Conc 34.3 g/dl (32-36); Mean Corpuscular Hemoglobin 27.8 pg (26-34); Mean Corpuscular Volume 81.0 fl (80-100); Nucleated Red Blood Cells Absolute Auto 0.000 K/mm3 (0.0-0.012); Nucleated Red Blood Cells Perc 0.0 % (0.0-0.2); Platelet Count Result 306 k/mm3 (150-375); Red Blood Count 4.96 M/mm3 (4.2-5.4); White Blood Count 11.0 K/mm3 (4.5-10.0)
[2025-01-01 09:41] LABS: Alanine Aminotransferase 10 U/L (6-35); Albumin Level 3.8 g/dL (3.5-5.1); Alkaline Phosphatase 70 U/L (38-126); Anion Gap 5 mmol/L (4-12); Aspartate Amino Transferase 18 U/L (14-36); Bilirubin,Total 0.8 mg/dL (0.2-1.3); Blood Urea Nitrogen 13 mg/dL (7-17); Calcium 9.7 mg/dL (8.4-10.2); Carbon Dioxide 26 mmol/L (22-30); Chloride 104 mmol/L (98-107); Estimated CRCL calculation 34 ml/min; Estimated Glomerular Filt Rate > 60; Glucose 96 mg/dL (65-110); Magnesium 2.3 mg/dL (1.6-2.3); Potassium 3.8 mmol/L (3.4-5.0); Sodium 135 mmol/L (137-145); Total Protein 6.5 g/dL (6.3-8.2)
[2025-01-01] MEDS: LIDOCAINE 2% VISC SOLN 15 ML UDC MUCOUS MEM (10:06)
[2025-01-01 10:09] VITALS: BP 157/77; PULSE 76; RESP 14; O2SAT 100
--- NOTE | 2025-01-01 11:14 | PC.NURSE ---
Pt. able to transfer to [facility] with assist x1. Pt. urinated.
[2025-01-01] MEDS: SODIUM CHLORIDE 0.9% IV 1,000 ML 999 ML IV CONT (11:15)
--- NOTE | 2025-01-01 11:50 | PC.NURSE ---
Pt. transferred with assist x1 to commode by park maintenance technician to urinate.
--- NOTE | 2025-01-01 12:35 | PC.NURSE ---
Mineral oil enema not yet arrived from pharmacy when pt. left for 3rd med/surg. LEONORA Snyder aware.
--- NOTE | 2025-01-01 12:55 | ADMGEN ---
This patient, Letitia Cherry, was admitted to 3 [facility] Surg Room 300-01. Patient/family oriented to hospital policies and general routines including ID bracelet, bed and alarms, visiting hours, pain management, procedures, bathroom and other care routines, personal items, smoking policy, room service/diet, and visiting hours. Information on how to activate the Rapid Response Team has been discussed. Patient/Family are encouraged to report perceived risks to care and to ask questions if they do not understand what they are told or what they should do. Report received from Cassie
[2025-01-01 13:34] LABS: Thyroid Stimulating Hormone Reflex 0.081 uIU/mL (0.465-4.68)
--- NOTE | 2025-01-01 13:44 | PM.IMHP ---
H&P: HPI History of Present Illness Date/Time: 01/01/25 1250 Chief Complaint: Constipation Narrative: 84-year-old female with a past medical history of macular degeneration (legally blind), hypothyroidism, former smoker, asthma, arthritis, depression, anxiety, diverticulitis, hypertension presented to the ED on 01/01/2025 with complaints of constipation and rectal pain. She states that she had a normal bowel movement on 12/28 but has not had another BM since, despite taking a Dulcolax tablet Monday and Monday. The patient was also using a a cold gel pad to sit on to help with the anal pain. She describes the pain in her anus and rectum as a constant burning rated 8/10. Denies fever, chills, chest pain. Of note, patient was admitted on 09/22/2023 for 3 days with is the same complaint. During that admission she was found to have a stool ball in the rectum with stercoral colitis. Patient also complains of frequent urination without dysuria. Upon arrival to the ED BP 141/90, HR 80, resp 16, temp 98.1? F, 99% on room air. UA with trace ketones but does not appear infected. Mild leukocytosis with WBC at 11. Mild hyponatremia with no additional electrolyte abnormalities. Renal function normal. CT abdomen pelvis reveals anal wall thickening and suspicion for stercoral colitis. 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 Alcohol intake: unknown Substance use: never Substance use type: does not use Do You Feel Safe in your Home?: Yes Lack of Transportation: No Lack of Food: Never True Current Housing: I Have Housing Concerned About Future Housing: No Difficulty Paying Gas/Electric Bills: No Difficulty Paying for Meds: No Currently Unemployed: No Education: High School Diploma/GED Difficulty w/ Childcare or Family Care: No Spiritual care concerns: No Meds Home Medications and Allergies Home Medications ?Medication ?Instructions ?Recorded ?Confirmed ?Type albuterol sulfate 90 mcg/actuation See Rx Instructions .Route .COMPLEX 09/22/23 01/01/25 History aerosol inhaler amlodipine 5 mg tablet 5 mg PO DAILY 09/22/23 01/01/25 History budesonide-formoterol HFA 160 See Rx Instructions .Route .COMPLEX 09/22/23 01/01/25 History mcg-4.5 mcg/actuation aerosol inhaler (Symbicort) ipratropium 0.5 mg-albuterol 3 mg See Rx Instructions .Route .COMPLEX 09/22/23 01/01/25 History (2.5 mg base)/3 mL nebulization soln losartan 100 mg tablet 100 mg PO DAILY 09/22/23 01/01/25 History acetaminophen 500 mg tablet 1,000 mg PO BID back and knee pain 01/01/25 01/01/25 History (Acetaminophen Extra Strength) levothyroxine 100 mcg tablet 100 mcg PO DAILY 01/01/25 01/01/25 History (Unithroid) linaclotide 72 mcg capsule 72 mcg PO .twice weekly 01/01/25 01/01/25 History (Linzess) polyethylene glycol 3350 17 gram 17 g PO HS 01/01/25 01/01/25 History oral powder packet (Miralax) sennosides 8.6 mg-docusate sodium 2 tab-cap PO DAILY 01/01/25 01/01/25 History 50 mg tablet (Senokot-S) tramadol 50 mg tablet 50 mg PO BID 01/01/25 01/01/25 History Allergies Allergy/AdvReac Type Severity Reaction Status Date / Time morphine AdvReac Unknown SLOW TO Verified 01/01/25 14:53 WAKE UP Vital Signs Vital Signs - 24 hr 01/01/25 07:38 01/01/25 10:09 Temperature 98.1 F Pulse Rate 80 76 Respiratory Rate 16 14 Blood Pressure 141/90 H 157/77 H Pulse Oximetry 99 100 Oxygen Delivery Room Air Exam Narrative: GENERAL: non-toxic appearing, in no acute distress. HEAD: Normocephalic, atraumatic. EYES: Conjunctivae clear. Legally blind baseline NOSE: Normal no drainage. THROAT: Pharynx clear, no exudate. NECK: Trachea midline. No adenopathy, no masses. RESPIRATORY: Airway patent, respirations nonlabored. CTA. CARDIOVASCULAR: Regular rate and rhythm. Peripheral pulses palpable BREASTS: Defer GASTROINTESTINAL: Abdomen is soft and mildly tender in lower quadrants. No organomegaly. Bowel sounds hypoactive. GENITOURINARY: Tenderness over area bladder MUSCULOSKELETAL: Moves all extremities. No gross deformities. No calf tenderness. SKIN: Warm, dry, normal color. NEURO: A&O X4. Speech clear PSYCHIATRIC: Normal interaction H&P: Results Labs Labs: Short CBC 01/01/25 Range/Units 08:28 WBC 11.0 H (4.5-10.0) K/mm3 Hgb 13.8 (12.0-15.0) g/dL Hct 40.2 (37.0-47.0) % Plt Count 306 (150-375) k/mm3 BMP 01/01/25 08:28 Sodium 135 L Potassium 3.8 Chloride 104 Carbon Dioxide 26 BUN 13 D Creatinine 0.82 Glucose 96 Calcium 9.7 Liver Function 01/01/25 Range/Units 08:28 Total Bilirubin 0.8 (0.2-1.3) mg/dL AST 18 (14-36) U/L ALT 10 (6-35) U/L Alkaline Phosphatase 70 (38-126) U/L Albumin 3.8 (3.5-5.1) g/dL Urine 01/01/25 Range/Units 08:27 Urine Color Yellow (Yellow) Urine Appearance Clear (Clear) Urine pH 8.0 (5.0-9.0) Ur Specific [place] 1.009 (1.001-1.035) Urine Protein Negative (Negative) mg/dL Urine Glucose (UA) Negative (Negative) mg/dL Assessment and Plan Assessment and plan (1) Stercoral colitis: Code(s): K52.89 - Other specified noninfective gastroenteritis and colitis Status: Acute Assessment and Plan: Patient presents to the ED with rectal/anal pain and constipation. CT abdomen pelvis reveals anal wall thickening and suspicion for stercoral colitis related to stool ball in rectum. WBC with slight leukocytosis at 11. Patient admitted last year with same diagnosis. -no need for antibiotic coverage -repeat CBC in a.m. -Zofran p.r.n. -acetaminophen and tramadol (2) Fecal impaction in rectum: Code(s): K56.41 - Fecal impaction Status: Acute Assessment and Plan: Recurrent issue for patient related to chronic constipation. Complaining of rectal/anal pain. Stool ball seen on CT -BRAD performed in ED. External nonthrombosed hemorrhoid noted on exam. Stool to high for reach. -mineral oil enema given x1-> minimal results -GI consult -> bowel prep ordered for sigmoidoscopy for disimpaction using scope planned on 01/02 -patient takes Linzess 72 mcg twice per week at home and Senokot 2 tabs daily. Currently on hold -resume bowel regimen post sigmoidoscopy. Consider increasing home regimen -tucks pads p.r.n. (3) Urinary frequency: Code(s): R35.0 - Frequency of micturition Status: Acute Assessment and Plan: New symptom over the past 2 days. Per patient, she was treated for UTI about 1 month ago. UA clear on admission. Denies dysuria. -concern for acute urinary retention due to constipation -bladder scan p.r.n. -I&O (4) Hypothyroidism: Qualifiers: Hypothyroidism type: unspecified Qualified Code(s): E03.9 - Hypothyroidism, unspecified Code(s): E03.9 - Hypothyroidism, unspecified Status: Acute Assessment and Plan: TSH 0.081 on admit. Free T4 pending -hold levothyroxine (5) Hypertension: Qualifiers: Hypertension type: primary hypertension Qualified Code(s): I10 - Essential (primary) hypertension Code(s): I10 - Essential (primary) hypertension Status: Chronic Assessment and Plan: BP 141/90 on admit -resume home amlodipine and losartan Plan Diet: Regular-NPO at midnight GI prophylaxis: NA DVT prophylaxis: SCDs lines/drains: PIV Fluids: 1 L NS Code status: Full Quality VTE Prophylaxis VTE prophylaxis: mechanical ordered Hospitalist [facility] Advance Care Plan I have confirmed that the patient's Advanced Care Plan is present, code status is documented, or surrogate decision maker is listed in patient medical record.: Yes Medication Reconciliation I have utilized all available resources to obtain, update and review the patients current medications (includes all prescriptions, OTC, herbals, cannabis, and nutritional supplements).: Yes
[2025-01-01 14:00] VITALS: BP 158/125; PULSE 80; RESP 16; TEMP 37.1; O2SAT 99
--- NOTE | 2025-01-01 15:58 | WPDGICN ---
Assessment and Plan Assessment and plan (1) Anal or rectal pain: Code(s): K62.89 - Other specified diseases of anus and rectum Status: Acute Assessment and Plan: probably from stercoral colitis/fecal impaction will give bowel prep today and tomorrow attempt sigmoidoscopy for disimpaction using scope, ER physician unable to reach fecal ball she is agreeable (2) Stercoral colitis: Code(s): K52.89 - Other specified noninfective gastroenteritis and colitis Status: Acute (3) Thickening of anal verge: Code(s): K62.89 - Other specified diseases of anus and rectum Status: Acute (4) Fecal impaction in rectum: Code(s): K56.41 - Fecal impaction Status: Acute (5) Abdominal pain: Qualifiers: Abdominal location: generalized Qualified Code(s): R10.84 - Generalized abdominal pain Code(s): R10.9 - Unspecified abdominal pain Status: Acute GI Consult Note Consult date/time: 01/01/25 15:58 Reason for consult: fecal impaction HPI: Letitia Cherry is a 84 year old female with history of constipation, hyperthyroidism (now hypo, on Synthroid), asthma, diverticulosis, previous bowel obstruction, arthritis on daily pain meds (tramadol), and 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 Her last normal BM was Monday then she took dulcolax but following day could not have a normal BM only was straining and rectal area was tender. She has been in the hospital previously for fecal impaction that required manual removal. Her last colonoscopy about [address] scan reviewed and showed stercoral colitis, ER physician tried digital disimpaction but unable to reach fecal ball. Daughter at bedside. Review of Systems Constitutional: Constitutional: Denies chills Eyes: Eyes: Reports blurry vision ENT: Denies dysphagia Cardiovascular: Cardiovascular: Denies chest pain Respiratory: Respiratory: Denies cough Gastrointestinal: Gastrointestinal: Reports abdominal pain and Reports constipation Genitourinary: Genitourinary: Denies dysuria Musculoskeletal: Musculoskeletal: Reports back pain and Reports arthralgias Integumentary/Breasts: Skin/Breast: Denies rash Neurologic: Denies Abnormal speech present Psychiatric: Psychiatric: Denies behavioral changes [facility] Past Medical History Medical History Macular degeneration Hyperthyroidism Arthritis Bowel obstruction Diverticulosis Depression Anxiety Kidney stones Diverticulitis Asthma Hypertension 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 Alcohol intake: unknown Substance use: never Substance use type: does not use Do You Feel Safe in your Home?: Yes Lack of Transportation: No Lack of Food: Never True Current Housing: I Have Housing Concerned About Future Housing: No Difficulty Paying Gas/Electric Bills: No Difficulty Paying for Meds: No Currently Unemployed: No Education: High School Diploma/GED Difficulty w/ Childcare or Family Care: No Spiritual care concerns: No Meds Home Medications and Allergies Home Medications ?Medication ?Instructions ?Recorded ?Confirmed ?Type albuterol sulfate 90 mcg/actuation See Rx Instructions .Route .COMPLEX 09/22/23 01/01/25 History aerosol inhaler amlodipine 5 mg tablet 5 mg PO DAILY 09/22/23 01/01/25 History budesonide-formoterol HFA 160 See Rx Instructions .Route .COMPLEX 09/22/23 01/01/25 History mcg-4.5 mcg/actuation aerosol inhaler (Symbicort) ipratropium 0.5 mg-albuterol 3 mg See Rx Instructions .Route .COMPLEX 09/22/23 01/01/25 History (2.5 mg base)/3 mL nebulization soln losartan 100 mg tablet 100 mg PO DAILY 09/22/23 01/01/25 History acetaminophen 500 mg tablet 1,000 mg PO BID back and knee pain 01/01/25 01/01/25 History (Acetaminophen Extra Strength) levothyroxine 100 mcg tablet 100 mcg PO DAILY 01/01/25 01/01/25 History (Unithroid) linaclotide 72 mcg capsule 72 mcg PO .twice weekly 01/01/25 01/01/25 History (Linzess) polyethylene glycol 3350 17 gram 17 g PO HS 01/01/25 01/01/25 History oral powder packet (Miralax) sennosides 8.6 mg-docusate sodium 2 tab-cap PO DAILY 01/01/25 01/01/25 History 50 mg tablet (Senokot-S) tramadol 50 mg tablet 50 mg PO BID 01/01/25 01/01/25 History Allergies Allergy/AdvReac Type Severity Reaction Status Date / Time morphine AdvReac Unknown SLOW TO Verified 01/01/25 14:53 WAKE UP Vital Signs Vital Signs - 24 hr 01/01/25 07:38 01/01/25 10:09 01/01/25 14:00 Temperature 98.1 F 98.7 F Pulse Rate 80 76 80 Respiratory Rate 16 14 16 Blood Pressure 141/90 H 157/77 H 158/125 H Pulse Oximetry 99 100 99 Oxygen Delivery Room Air Exam Narrative: GENERAL: Well-appearing, well-nourished, and in no acute distress. HEAD: Normocephalic, atraumatic. EYES: non icteric ENT: Nares clear, no rhinorrhea or epistaxis. NECK: Supple. No meningismus. CHEST: Speaking in full sentences. No respiratory distress. HEART: Regular rate and rhythm. ABDOMEN: Soft, nondistended. No rigidity or guarding. Not peritoneal. No tenderness to palpation throughout EXTREMITIES: Normal range of motion. No lower extremity edema. SKIN: Warm, dry, no rash. NEURO: No focal deficits. Alert and oriented. Answering questions. Following commands. Normal speech without aphasia or dysarthria. PSYCH: Normal mood and affect. Results Labs 01/01/25 08:28 01/01/25 08:28 Labs: Short CBC 01/01/25 Range/Units 08:28 WBC 11.0 H (4.5-10.0) K/mm3 Hgb 13.8 (12.0-15.0) g/dL Hct 40.2 (37.0-47.0) % Plt Count 306 (150-375) k/mm3 [facility] 01/01/25 08:28 Sodium 135 L Potassium 3.8 Chloride 104 Carbon Dioxide 26 BUN 13 D Creatinine 0.82 Glucose 96 Calcium 9.7 Liver Function 01/01/25 Range/Units 08:28 Total Bilirubin 0.8 (0.2-1.3) mg/dL AST 18 (14-36) U/L ALT 10 (6-35) U/L Alkaline Phosphatase 70 (38-126) U/L Albumin 3.8 (3.5-5.1) g/dL Urine 01/01/25 Range/Units 08:27 Urine Color Yellow (Yellow) Urine Appearance Clear (Clear) Urine pH 8.0 (5.0-9.0) Ur Specific [place] 1.009 (1.001-1.035) Urine Protein Negative (Negative) mg/dL Urine Glucose (UA) Negative (Negative) mg/dL
[2025-01-01] MEDS: traMADol HCL (*CRX) 50 MG TABLET PO (16:35)
[2025-01-01] MEDS: BISACODYL 5 MG TABLET EC 20 MG PO (17:40)
[2025-01-01] MEDS: ACETAMINOPHEN 500 MG TABLET 1000 MG PO (17:42)
[2025-01-01 20:54] VITALS: BP 134/67; PULSE 67; RESP 18; TEMP 37.1; O2SAT 96
--- NOTE | 2025-01-01 21:07 | PCRCNOTE ---
Patient refused advair inhaler. Patient does not take any scheduled inhalers at home, only prn.
[2025-01-01 21:21] LABS: Free T4 Free Thyroxine Reflex 1.84 ng/dL (0.78-2.19)
[2025-01-01 22:11] LABS: Total Triiodothyronine (T3) 0.85 NG/ML (0.82-1.58)
[2025-01-02] MEDS: FAMOTIDINE 20 MG/2 ML VIAL IV PUSH (05:47)
[2025-01-02 05:52] LABS: Hematocrit 39.7 % (37.0-47.0); Hemoglobin 13.7 g/dL (12.0-15.0); Mean Corpuscular HGB Conc 34.5 g/dl (32-36); Mean Corpuscular Hemoglobin 28.2 pg (26-34); Mean Corpuscular Volume 81.9 fl (80-100); Platelet Count Result 316 k/mm3 (150-375); Red Blood Count 4.85 M/mm3 (4.2-5.4); White Blood Count 11.7 K/mm3 (4.5-10.0)
[2025-01-02 06:00] VITALS: BP 130/71; PULSE 73; RESP 18; TEMP 37; O2SAT 98
[2025-01-02] MEDS: FLUTICASONE/SALMETEROL 115-21 MCG INHALER 1 PUFF 2 PUFF INHALATION (08:00)
[2025-01-02] MEDS: ACETAMINOPHEN 500 MG TABLET 1000 MG PO (08:10)
[2025-01-02] MEDS: LOSARTAN POTASSIUM 100 MG TABLET PO (08:11)
[2025-01-02] MEDS: traMADol HCL (*CRX) 50 MG TABLET PO (08:14)
[2025-01-02 08:30] VITALS: BP 138/61; PULSE 74; RESP 18; TEMP 37; O2SAT 98
[2025-01-02] MEDS: LACTATED RINGERS 1,000 ML 150 ML IV CONT (08:31)
--- NOTE | 2025-01-02 08:55 | WPDANESEPPF ---
Anes - Initial Pre Proc Eval Procedure: Operation Date: 01/02/25 16:15 Proposed Procedures p Flexible Sigmoidoscopy - Abraham Chawla MD Date/Time: 01/02/25 08:55 Surgeon: Sary Davis MD Pre Op Diagnosis: Anal Thickening/Stercoral Colitis/N Colonoscopy/A Patient Data Age: 84 Gender: F Height: 1.55 m Weight: 51.6 kg Last Vital Signs Temp 98.6 F 01/02/25 08:30 Pulse 74 01/02/25 08:30 Resp 18 01/02/25 08:30 BP 138/61 01/02/25 08:30 Pulse Ox 98 01/02/25 08:30 O2 Del Method Room Air 01/02/25 08:30 Allergies Allergy/AdvReac Type Severity Reaction Status Date / Time morphine AdvReac Unknown SLOW TO Verified 01/01/25 14:53 WAKE UP Home Medications ?Medication ?Instructions ?Recorded ?Confirmed ?Type albuterol sulfate 90 mcg/actuation See Rx Instructions .Route .COMPLEX 09/22/23 01/01/25 History aerosol inhaler amlodipine 5 mg tablet 5 mg PO DAILY 09/22/23 01/01/25 History budesonide-formoterol HFA 160 See Rx Instructions .Route .COMPLEX 09/22/23 01/01/25 History mcg-4.5 mcg/actuation aerosol inhaler (Symbicort) ipratropium 0.5 mg-albuterol 3 mg See Rx Instructions .Route .COMPLEX 09/22/23 01/01/25 History (2.5 mg base)/3 mL nebulization soln losartan 100 mg tablet 100 mg PO DAILY 09/22/23 01/01/25 History acetaminophen 500 mg tablet 1,000 mg PO BID back and knee pain 01/01/25 01/01/25 History (Acetaminophen Extra Strength) levothyroxine 100 mcg tablet 100 mcg PO DAILY 01/01/25 01/01/25 History (Unithroid) linaclotide 72 mcg capsule 72 mcg PO .twice weekly 01/01/25 01/01/25 History (Linzess) polyethylene glycol 3350 17 gram 17 g PO HS 01/01/25 01/01/25 History oral powder packet (Miralax) sennosides 8.6 mg-docusate sodium 2 tab-cap PO DAILY 01/01/25 01/01/25 History 50 mg tablet (Senokot-S) tramadol 50 mg tablet 50 mg PO BID 01/01/25 01/01/25 History Laboratory Tests 01/01/25 01/02/25 08:28 04:59 WBC 11.0 H K/mm3 11.7 H K/mm3 (4.5-10.0) (4.5-10.0) RBC 4.96 M/mm3 4.85 M/mm3 (4.2-5.4) (4.2-5.4) Hgb 13.8 g/dL 13.7 g/dL (12.0-15.0) (12.0-15.0) Hct 40.2 % 39.7 % (37.0-47.0) (37.0-47.0) MCV 81.0 fl 81.9 fl (80-100) (80-100) MCH 27.8 pg 28.2 pg (26-34) (26-34) MCHC 34.3 g/dl 34.5 g/dl (32-36) (32-36) RDW 14.8 H % 14.8 H % (11.5-14.5) (11.5-14.5) Plt Count 306 k/mm3 316 k/mm3 (150-375) (150-375) MPV 10.0 fl 10.3 fl (7.4-10.4) (7.4-10.4) Immature Gran % (Auto) 0.5 % (0-0.5) Neut % (Auto) 78.5 H % (45.5-73.1) Lymph % (Auto) 13.8 L % (18.3-44.2) [place] % (Auto) 5.1 % (2.6-8.5) Eos % (Auto) 1.7 % (0-4.4) Baso % (Auto) 0.4 % (0.2-1.2) Lymph # (Auto) 1.52 K/mm3 (0.9-3.2) [place] # (Auto) 0.6 K/mm3 (0.1-0.6) Eos # (Auto) 0.2 K/mm3 (0-0.3) Baso # (Auto) 0.0 K/mm3 (0.0-0.1) Abs Immat Gran (auto) 0.05 H K/mm3 (0.00-0.031) Absolute Neuts (auto) 8.6 H K/mm3 (1.3-6.7) Absolute Nucleated RBC 0.000 K/mm3 (0.0-0.012) Nucleated RBC % 0.0 % (0.0-0.2) Sodium 135 L mmol/L (137-145) Potassium 3.8 mmol/L (3.4-5.0) Chloride 104 mmol/L (98-107) Carbon Dioxide 26 mmol/L (22-30) Anion Gap 5 mmol/L (4-12) BUN 13 D mg/dL (7-17) Creatinine 0.82 mg/dL (0.7-1.0) Estim Creat Clear Calc 34 ml/min Estimated GFR > 60 (59 - ) Glucose 96 mg/dL (65-110) Lactic Acid 1.0 mmol/L (0.7-2.0) Calcium 9.7 mg/dL (8.4-10.2) Magnesium 2.3 mg/dL (1.6-2.3) Total Bilirubin 0.8 mg/dL (0.2-1.3) AST 18 U/L (14-36) ALT 10 U/L (6-35) Alkaline Phosphatase 70 U/L (38-126) Total Protein 6.5 g/dL (6.3-8.2) Albumin 3.8 g/dL (3.5-5.1) TSH (Reflex) 0.081 L uIU/mL (0.465-4.68) Free T4 1.84 ng/dL (0.78-2.19) Total T3 0.85 NG/ML (0.82-1.58) Patient hx anesthesia problems: none Family hx anesthesia problems: none Results Review: All pre-operative results and documents have been reviewed as part of the pre-operative evaluation. 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 Alcohol intake: unknown Substance use: never Substance use type: does not use Do You Feel Safe in your Home?: Yes Lack of Transportation: No Lack of Food: Never True Current Housing: I Have Housing Concerned About Future Housing: No Difficulty Paying Gas/Electric Bills: No Difficulty Paying for Meds: No Currently Unemployed: No Education: High School Diploma/GED Difficulty w/ Childcare or Family Care: No Spiritual care concerns: No Anes - Eval Final PreProcedure Day of Procedure 01/02/25 08:55 Patient weight: normal Heart: regular rate and rhythm Lungs: clear to auscultation Airway: Mallampati scale class II Neurological: alert and oriented Last oral intake: >/= 8 hours ASA classification: III Emergent: no Anesthetic plan: proceed Anesthesia type and monitoring: general GIVS and standard monitoring Results Review: All pre-operative results and documents have been reviewed as part of the pre-operative evaluation. Informed Consent: The patient's anesthetic plan and its attendant risks and benefits were discussed with the patient/family/POA. Questions were solicited and answers provided to the satisfaction of the patient/family/POA.
--- NOTE | 2025-01-02 09:34 | S_PTH ---
PATIENT: Letitia Cherry LOC: [id number] U#:[id number] AGE/SX: 84/F ROOM: 300 RE01/01/[address]: Mikael Soriano MD : 1940 BED: 01 DIS: 01/02/2025 SPEC #: [id number] RECD: 01/02/25 11:31 STATUS: [employer] #: [id number] PHYLLIS: 01/02/25 09:[address]: Abraham Chawla DEPT: [facility] Surgical RECD BY: Areli Tanner ENTERED: 01/02/25 11:31 SP TYPE: Surgical OTHR DR: Leigh Ann Pereira, JONH Sparks MD Tissues: A - Colon Biopsy Procedures: Hematoxylin and Eosin Stain Gross and Microscopic Level 4
[2025-01-02 09:36] VITALS: BP 108/55; PULSE 87; RESP 17; O2SAT 98
[2025-01-02 09:46] VITALS: BP 116/59; PULSE 78; RESP 18; O2SAT 100
[2025-01-02 09:56] VITALS: BP 125/70; PULSE 75; RESP 20; O2SAT 100
--- NOTE | 2025-01-02 09:57 | PC.NURSE ---
To GI Lab per [ ], IV [ ]. Report given to [Jodie ].
--- NOTE | 2025-01-02 09:58 | PC.NURSE ---
Returned from GI Lab. Report received from [ Smith ].
[2025-01-02 10:34] VITALS: BP 135/71; PULSE 71; RESP 18; TEMP 36.2; O2SAT 100
--- NOTE | 2025-01-02 11:07 | P.DS_ITS ---
DS: Admitting Diagnosis Discharge Date 01/02/2025 Admitting Diagnosis Fecal impaction DS: Discharge Diagnosis Discharge Diagnosis (1) Stercoral colitis: Code(s): K52.89 - Other specified noninfective gastroenteritis and colitis Status: Acute Assessment and Plan: Patient presents to the ED with rectal/anal pain and constipation. CT abdomen pelvis reveals anal wall thickening and suspicion for stercoral colitis related to stool ball in rectum. WBC with slight leukocytosis at 11. Patient admitted last year with same diagnosis. -no need for antibiotic coverage -repeat CBC in a.m. -Zofran p.r.n. -acetaminophen and tramadol (2) Fecal impaction in rectum: Code(s): K56.41 - Fecal impaction Status: Acute Assessment and Plan: Recurrent issue for patient related to chronic constipation. Complaining of rectal/anal pain. Stool ball seen on CT -BRAD performed in ED. External nonthrombosed hemorrhoid noted on exam. Stool to high for reach. -mineral oil enema given x1-> minimal results -GI consult -> bowel prep ordered for sigmoidoscopy for disimpaction using scope planned on 01/02 -patient takes Linzess 72 mcg twice per week at home and Senokot 2 tabs daily. Currently on hold -resume bowel regimen post sigmoidoscopy. Consider increasing home regimen -tucks pads p.r.n. 01/02: Sigmoidoscopy successful. Continue home bowel regimen. (3) Urinary frequency: Code(s): R35.0 - Frequency of micturition Status: Acute Assessment and Plan: New symptom over the past 2 days. Per patient, she was treated for UTI about 1 month ago. UA clear on admission. Denies dysuria. -concern for acute urinary retention due to constipation -bladder scan p.r.n. -I&O 01/02: Pt reports that she feels better when she voids, no sx, feels as if she is emptying completely. (4) Hypothyroidism: Qualifiers: Hypothyroidism type: unspecified Qualified Code(s): E03.9 - Hypothyroidism, unspecified Code(s): E03.9 - Hypothyroidism, unspecified Status: Acute Assessment and Plan: TSH 0.081 on admit. Free T4 pending -hold levothyroxine 01/02: t3: WDL 0.85 t4: WDL 1.84 Continue to hold levothyroxine with prompt PCP f/u. Pt reports that her and her PCP have been titrating her dose a lot over the last several months. (5) Hypertension: Qualifiers: Hypertension type: primary hypertension Qualified Code(s): I10 - Essential (primary) hypertension Code(s): I10 - Essential (primary) hypertension Status: Chronic Assessment and Plan: BP 141/90 on admit -resume home amlodipine and losartan Plan D/C with PCP f/u DS: Summary Hospital Course Reason for hospitalization: Fecal impaction Hospital Course: 84-year-old female with a past medical history of macular degeneration (legally blind), hypothyroidism, former smoker, asthma, arthritis, depression, anxiety, diverticulitis, hypertension presented to the ED on 01/01/2025 with complaints of constipation and rectal pain. She states that she had a normal bowel movement on 12/28 but has not had another BM since, despite taking a Dulcolax tablet Monday and Monday. The patient was also using a a cold gel pad to sit on to help with the anal pain. She describes the pain in her anus and rectum as a constant burning rated 8/10. Denies fever, chills, chest pain. Of note, patient was admitted on 09/22/2023 for 3 days with is the same complaint. During that admission she was found to have a stool ball in the rectum with stercoral colitis. Patient also complains of frequent urination without dysuria. Upon arrival to the ED BP 141/90, HR 80, resp 16, temp 98.1? F, 99% on room air. UA with trace ketones but does not appear infected. Mild leukocytosis with WBC at 11. Mild hyponatremia with no additional electrolyte abnormalities. Renal function normal. CT abdomen pelvis reveals anal wall thickening and suspicion for stercoral colitis. Large stool ball noted on my read. Pt underwent sigmoidoscopy for disimpaction which was successful. Pt to continue home bowel regimen. Pt also to remain to hold levothyroxine due to low TSH with prompt PCP f/u. Status at Discharge Overall status at discharge: patient is back to baseline Time Spent with Patient Time attestation: Total time spent providing and/or coordinating discharge services: 40 Exam Narrative: GENERAL: non-toxic appearing, in no acute distress. HEAD: Normocephalic, atraumatic. EYES: Conjunctivae clear. Legally blind baseline NOSE: Normal no drainage. THROAT: Pharynx clear, no exudate. NECK: Trachea midline. No adenopathy, no masses. RESPIRATORY: Airway patent, respirations nonlabored. CTA. CARDIOVASCULAR: Regular rate and rhythm. Peripheral pulses palpable BREASTS: Defer GASTROINTESTINAL: Abdomen is soft and mildly tender in lower quadrants. No organomegaly. Bowel sounds hypoactive. GENITOURINARY: BS throughout, no TTP MUSCULOSKELETAL: Moves all extremities. No gross deformities. No calf tenderness. SKIN: Warm, dry, normal color. NEURO: A&O X4. Speech clear PSYCHIATRIC: Normal interaction DS: Data Data Completed and Pending Pending studies at discharge: Pending at discharge 01/02/25 09:34 Surgical [PTH] Routine Labs on day of discharge: Labs from last 24 hours 01/02/25 01/01/25 04:59 08:28 WBC 11.7 H RBC 4.85 Hgb 13.7 Hct 39.7 MCV 81.9 MCH 28.2 MCHC 34.5 RDW 14.8 H Plt Count 316 MPV 10.3 TSH (Reflex) 0.081 L Free T4 1.84 Total T3 0.85 Imaging Radiologist's impression: A/P CT: IMPRESSION: 1. Anal wall thickening. Recommend evaluation/anoscopy. 2. Worrisome for stercoral colitis. 3. Additional findings as above. Discharge Plan Discharge Attending physician on discharge: Mikael Soriano Consulting providers: Nora Mcghee; Abraham Chawla Discharging Clinician: Nora Mcghee Anticipated Discharge Date/Time: 01/02/25 13:00 Patient Disposition: Home Activity: july shower Diet: high fiber Discharge Instructions: 1. Continue to eat a high fiber diet 2. Follow-up with your primary care provider for your thyroid levels and to update them on this recent admission. Patient Instructions: Constipation (DC), High Fiber Diet (DC) Patient Language: Citizen Of [place] Stand Alone Forms: General Discharge Information Follow-up/Referrals: Randall,MD Leigh Ann [Primary Care Provider, Unknown] - 2 Weeks Discharge Medications: Continued tramadol 50 mg tablet 50 mg PO BID levothyroxine [Unithroid] 100 mcg tablet 100 mcg PO DAILY Linzess 72 mcg capsule 72 mcg PO .twice weekly Patient Comments: Takes Monday and Monday sennosides-docusate sodium [Senokot-S] 8.6-50 mg Tablet 2 tab-cap PO DAILY acetaminophen [Acetaminophen Extra Strength] 500 mg tablet 1,000 mg PO BID Rx Instructions: Takes with Tramadol polyethylene glycol 3350 [Miralax] 17 gram powder in packet 17 g PO HS ipratropium-albuterol 0.5 mg-3 mg(2.5 mg base)/3 mL solution for nebulization See Rx Instructions .ROUTE .COMPLEX Rx Instructions: 3mL neb QID as needed amlodipine 5 mg tablet 5 mg PO DAILY albuterol sulfate 90 mcg/actuation HFA aerosol inhaler See Rx Instructions .ROUTE .COMPLEX Rx Instructions: 2 inhalations every 4 hours as needed losartan 100 mg tablet 100 mg PO DAILY Rx Instructions: Pt states she only takes half a tablet (50mg) budesonide-formoterol [Symbicort] 160-4.5 mcg/actuation HFA aerosol inhaler See Rx Instructions .ROUTE .COMPLEX Rx Instructions: 2 puffs twice daily Date of admission: 01/01/25 11:11 Primary Care Provider: Randall,Leigh Ann Admitting Provider: Sary Davis Attending physician on admission: Sary Davis Condition: Stable Quality VTE Prophylaxis VTE prophylaxis: mechanical ordered Hospitalist MIPS Heart Failure (Exclusion) Patient has history of Heart Transplant or Left Ventricular Assistive Device?: No IF YES, STOP HERE Heart Failure (Qualifier) Patient has current or prior documentation of LVEF less than or equal to 40%, or mod/servere depressed LVSF?: No IF NO, STOP HERE
== END 2025-01-02 12:55 | disposition home or self-care (01) ==
LOC: ANHED 08:17 → ANH3MEDSUR 12:06
PROVIDERS: Internal Medicine Gastroenterology; Nurse Practitioner Adult Health; Admitting Provider Internal Medicine; Emergency Provider Student in an Organized Health Care Education/Training Program; PCP Internal Medicine; Visit Provider Family Medicine
PROC: 0DJD8ZZ Inspection of Lower Intestinal Tract, Via Natural or Artificial Opening Endoscopic (ICD-10-PCS; CPT 45330; principal; 2025-01-02 16:15)
DX: K52.89 Other specified noninfective gastroenteritis and colitis (principal); K62.6 Ulcer of anus and rectum; K56.41 Fecal impaction; K57.30 Diverticulosis of large intestine without perforation or abscess without bleeding; K64.8 Other hemorrhoids; R35.0 Frequency of micturition; E03.9 Hypothyroidism, unspecified; H35.30 Unspecified macular degeneration; J45.909 Unspecified asthma, uncomplicated; I10 Essential (primary) hypertension; H54.8 Legal blindness, as defined in USA; Z87.891 Personal history of nicotine dependence; F41.8 Other specified anxiety disorders
CPT/HCPCS: 45331; 36415; 74177; 80053; 81003; 83605; 83735; 84439; 84443; 84480; 85025; 85027; 88305; 96361; 96374; 99285; A9270; G0378; J2704; J7030; J7120; Q9967